=== PATIENT | female | born 1995 | race Caucasian/White ===

== ENCOUNTER → 2017-07-23 10:16 | Outpatient (CLI) | payer OTHER, SELFPAY ==
[2017-07-23 12:02] LABS: Absolute Lymphocyte Count 1.75 X10^3/ul (0.83-4.51); Absolute Neutrophil Count 5.6 X10^3/uL (2.0-7.7); Basophil# 0.02 X10^3/uL; Basophil% 0.3 % (0-1); Eosinophil# 0.12 X10^3/uL; Eosinophils% 1.5 % (0-5); Hematocrit 37.8 % (37-47); Hemoglobin 13.1 g/dl (12.0-15.0); Lymphocyte # 1.75 X10^3/ul (4.0); Lymphocyte % 22.2 % (19-41); Mean Corp Hgb Conc 34.7 g/gl (32-36); Mean Corpuscular Hgb 30.3 pg (27.0-32.0); Mean Corpuscular Volume 87.3 fL (81-99); Mean Platelet Vol. 10.7 fl (6.2-12.0); Monocyte# 0.39 X10^3/uL; Monocyte% 4.9 % (0-10); Neutrophil % 70.8 % (47-70); POSITIVE COUNT NO; POSITIVE DIFFERENTIAL NO; POSITIVE MORPHOLOGY NO; Platelet Count 255 K/mm3 (150-450); RBC Distribution Width CV 12.4 % (11.6-14.6); RBC Distribution Width SD 39.1 fl (35.1-43.9); Red Blood Count 4.33 M/mm3 (4.2-5.4); White Blood Count 7.9 K/mm3 (4.4-11.0)
[2017-07-23 12:07] LABS: Color, Urine Yellow (Yellow); Glucose, Dipstick Normal (Normal); Ketone-Dipstick Negative (Negative); Leukocyte Esterase-Dipstick Negative /ul (Negative); Nitrite-Dipstick Negative (Negative); Occult Blood-Urine Negative /ul (Negative); Protein-Dipstick Negative (Negative); Urine Bilirubin Dipstick Negative (Negative); Urine Clarity Clear (Clear); Urine Urobilinogen Normal (Normal)
[2017-07-23 12:21] LABS: Amphetamine Urine VISTA NEGATIVE (<1000 ng/mL); Barbiturate Urine VISTA NEGATIVE (< 200 ng/mL); Benzodiazepine Urine VISTA NEGATIVE (< 200 ng/mL); Cocaine Urine VISTA NEGATIVE (< 300 ng/mL); Ecstacy Urine VISTA NEGATIVE (< 500 ng/mL); Methadone Urine VISTA NEGATIVE (< 300 ng/mL); PCP Urine VISTA NEGATIVE (< 25 ng/mL); THC Urine VISTA NEGATIVE (< 50 ng/mL); Vista UDS pH Range 6
[2017-07-23 12:22] LABS: Thyroid Stim Hormone (TSH) 1.33 uIU/mL (0.358-3.74)
[2017-07-23 13:05] LABS: HIV - WCH Non-Reactive (Nonreactive); Rubella IgG 284.9 IU/mL
[2017-07-24 10:48] LABS: HEPATITIS B SURFACE AG Negative (Negative); Hep C Antibodies <0.1 s/co ratio (0.0-0.9)
[2017-07-30 11:44] LABS: Prenatal RPR NONREACTIVE (NONREACTIVE)
== END ==
PROVIDERS: Visit Provider Obstetrics & Gynecology
DX: Z34.81 Encounter for supervision of other normal pregnancy, first trimester (principal)
CPT/HCPCS: 36415; 80307; 81002; 84443; 85025; 86703; 86762; 86803; 87340

== ENCOUNTER → 2017-11-18 15:05 | Outpatient (CLI) | payer OTHER, SELFPAY ==
--- NOTE | 2017-11-18 15:05 | DT_ITS ---
This patient was seen during an EMR downtime November 15, 2017 - November 22, 2017. This patient may have a combination of paper and electronic documentation or all paper documentation. All documentation is viewable within the e-chart portion of [facility] for each patient visit.
[2017-11-23 03:22] LABS: Hematocrit 33.4 % (37-47); Hemoglobin 11.2 g/dl (12.0-15.0); Mean Corp Hgb Conc 33.5 g/gl (32-36); Mean Corpuscular Hgb 30.2 pg (27.0-32.0); Mean Platelet Vol. 10.3 fl (6.2-12.0); Platelet Count 260 K/mm3 (150-450); RBC Distribution Width CV 12.8 % (11.6-14.6); RBC Distribution Width SD 41.4 fl (35.1-43.9); Red Blood Count 3.71 M/mm3 (4.2-5.4); Scan Indicated on CBC? Y/N NO
[2017-11-23 04:36] LABS: Glucose Challenge Gest 1H 50g 114 mg/dL (70-140)
== END ==
PROVIDERS: Visit Provider Obstetrics & Gynecology
DX: Z34.83 Encounter for supervision of other normal pregnancy, third trimester (principal)
CPT/HCPCS: 36415; 82950; 85027

== ENCOUNTER 2017-12-14 15:10 | Outpatient (CLI) | payer OTHER, SELFPAY ==
[2017-12-14 15:27] VITALS: BMI 43.4
--- NOTE | 2017-12-14 23:07 | OB.TRI.NOTE ---
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 Sent from ED to [facility] for evaluation first to r/o labor and then plan return to ED for continued workup of symptoms. Isolated high BP in ED Allergies No Known Allergies Allergy (Verified 12/14/17 15:29) Physical Exam Vitals: BP's 120s/70s Not tachycardic. NO continued c/o SOB, chest pressure or tachycardia here. NST - FHR Rate Baby A Baseline: 130s min to avg variability. Accels to 150s. brief variables to 110-120 Variability:: Moderate Accelerations:: 15 x 15 Decelerations:: Variable - each less than 10 sec duration NST Reactive:: Yes, Appropriate for gestational age FHR Category:: Category I Uterine Activity:: irritability only no regular UCs. Impression/Plan 31 5/7 wk Anxiety / panic episode, resolved NST reassuring for gestational age Home. Declined return to ED for continued evaluation as symptoms resolved F/U in ofc as planned and may consider Vistaril prn for anxiety if needed, or other daily RX
--- NOTE | 2017-12-14 23:14 | OB.TRI.HP_ITS ---
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 Sent from ED to [facility] for evaluation first to r/o labor and then plan return to ED for continued workup of symptoms. Isolated high BP in ED Allergies No Known Allergies Allergy (Verified 12/14/17 15:29) Physical Exam Vitals: BP's 120s/70s Not tachycardic. NO continued c/o SOB, chest pressure or tachycardia here. NST - FHR Rate Baby A Baseline: 130s min to avg variability. Accels to 150s. brief variables to 110- 120 Variability:: Moderate Accelerations:: 15 x 15 Decelerations:: Variable - each less than 10 sec duration NST Reactive:: Yes, Appropriate for gestational age FHR Category:: Category I Uterine Activity:: irritability only no regular UCs. Impression/Plan 31 5/7 wk Anxiety / panic episode, resolved NST reassuring for gestational age Home. Declined return to ED for continued evaluation as symptoms resolved F/U in ofc as planned and may consider Vistaril prn for anxiety if needed, or other daily RX
== END 2017-12-14 16:25 | disposition home or self-care (01) ==
LOC: WPOUT 15:14 → WP 15:15
PROVIDERS: Visit Provider Obstetrics & Gynecology
DX: O99.343 Other mental disorders complicating pregnancy, third trimester (principal); F41.0 Panic disorder [episodic paroxysmal anxiety]; Z3A.31 31 weeks gestation of pregnancy
CPT/HCPCS: 59025; 59050; 99218; G0378

== ENCOUNTER → 2018-01-13 15:29 | Outpatient (CLI) | payer OTHER, SELFPAY ==
[2018-01-13 18:42] LABS: Group B Strep DNA By PCR Negative (Negative); Internal Control PASS; Probe Check PASS; Specimen Processing Control PASS
== END ==
LOC: LABSPEC 15:29
PROVIDERS: Visit Provider Obstetrics & Gynecology
DX: Z36.85 Encounter for antenatal screening for Streptococcus B (principal)
CPT/HCPCS: 87081; 87653

== ENCOUNTER 2018-02-17 07:07 | Inpatient (IN) | payer OTHER, SELFPAY ==
[2018-02-17 08:15] VITALS: BMI 45.6
[2018-02-17 08:40] LABS: Hematocrit 36.5 % (37-47); Hemoglobin 12.1 g/dl (12.0-15.0); Mean Corp Hgb Conc 33.2 g/gl (32-36); Mean Corpuscular Hgb 28.5 pg (27.0-32.0); Mean Corpuscular Volume 85.9 fL (81-99); Mean Platelet Vol. 10.2 fl (6.2-12.0); Platelet Count 252 K/mm3 (150-450); RBC Distribution Width CV 13.2 % (11.6-14.6); RBC Distribution Width SD 41.6 fl (35.1-43.9); Red Blood Count 4.25 M/mm3 (4.2-5.4); White Blood Count 10.8 K/mm3 (4.4-11.0)
[2018-02-17] MEDS: Lactated Ringers 1,000 ML 50 ML IV ×4 (08:40→20:44)
[2018-02-17 08:41] LABS: Scan Indicated on CBC? Y/N NO
[2018-02-17] MEDS: Oxytocin 30 units/NS 500 ml 30 UNITS/500 ML IV.SOLN IV (09:00)
[2018-02-17] MEDS: fentaNYL-bupivacaine (epidural) 100 ML BAG EPIDURAL ×3 (11:48→20:44)
[2018-02-17] MEDS: Ondansetron 4 MG/2 ML Vial IV (18:46)
[2018-02-17] MEDS: Acetaminophen 325 MG Tablet PO (19:48)
[2018-02-18] VITALS (24 sets, daily range): BP systolic 106–142; BP diastolic 58–98; PULSE 80–124; RESP 12–18; TEMP 36.4–37.8; O2SAT 93–100
[2018-02-18] MEDS: fentaNYL-bupivacaine (epidural) 100 ML BAG EPIDURAL (01:27)
[2018-02-18] MEDS: Lactated Ringers 1,000 ML 50 ML IV (02:11)
[2018-02-18] MEDS: Sodium Citrate/Citric Acid 30 ML UDC PO ×2 (03:28→03:30)
[2018-02-18] MEDS: Lactated Ringers 1,000 ML 999 ML IV (03:30)
--- NOTE | 2018-02-18 03:30 | PCM.PN.OB ---
Subjective: The patient has progressed to complete and pushing. After several pushes late decelerations were noted with contractions. Pitocin was discontinued and attempts were again made to push but several prolonged decelerations were noted. Examination shows the baby to be at -2 station with It. Patient has been complete for approximately 4 hours with no prospect of delivery soon. Given this we will proceed with primary section for failure to progress and intolerance of labor. Have discussed the risk benefits and alternatives of this procedure including possibility of bleeding infection and injury to surrounding structures such as bowel bladder and the patient and her desired we proceed. All questions were answered. - Physical Exam Weight: 257 lb 4.471 oz Body Mass Index (BMI) 45.6 Intake and Output for Last 24 Hours 02/16/18 02/17/18 02/18/18 23:59 23:59 23:59 Intake Total 2820 / 2820 Output Total 200 / 200 Balance 2620 / 2620 Laboratory Tests Past 24 Hrs 02/17/18 02/17/18 08:06 08:06 WBC 10.8 RBC 4.25 Hgb 12.1 Hct 36.5 L MCV 85.9 MCH 28.5 MCHC 33.2 RDW 13.2 RDW Differential 41.6 Plt Count 252 MPV 10.2 Blood Type B POSITIVE Antibody Screen NEGATIVE Medical Necessity - Tobacco Use Smoking Status: Never smoker
--- NOTE | 2018-02-18 03:39 | OP.PCM_ITS ---
Operative Report Date of Procedure: 02/18/18 Surgeon: Jose Parsons MD, FACOG Labor Relations Or Personnel Negotiator: JANETH Jones Anesthesia: Boo Buckner CRNA Anesthesia: Epidural with Duramorph Pre-op Diagnosis: Failure to Progress, Increasing Stress, Postdatism Post-Op Diagnosis: Failure to Progress, Increasing Stress, Postdatism, Cephalopelvic Disproportion Procedure: Primary Low Transverse Cervical Caesarean Section Findings: Viable male with Apgars of 8/9 in occiput anterior presentation with clear amniotic fluid and normal three-vessel placenta. Head not well engaged in pelvis and caput noted. Indication: This is a 22-year-old who presented for induction at 41 weeks gestation. care has otherwise been uneventful. She subsequently progressed to complete and pushing but with each push had late decelerations noted. Pitocin was stopped and a repeat trial of pushing was performed with resultant prolonged decelerations. Given no prospect of delivery soon, a high station of the head, and caput noted it was decided to proceed with section. The patient has been counseled regarding the risk and indications of this procedure including the possibility of bleeding infection and injury to surrounding structures such as bowel bladder. All questions were answered. Procedure: Patient was taken to the operating room where after spinal anesthesia was placed, the patient was prepped and draped in usual sterile fashion and a Graf catheter was placed. The abdomen was entered through a Pfannenstiel incision and peritoneum was entered bluntly. After developing a bladder flap on the lower uterine segment a low transverse incision was made on the uterus and head was easily delivered onto the operative field the nose mouth and oropharynx were bulb suctioned. Subsequently a viable male infant was born with Apgars of/9. The was noted to cry move all extremities vigorously on the operative field. The umbilical cord was doubly clamped and ligated and handed to the nursery personnel who were present for the delivery. Arterial and venous blood gases were eventually collected per routine. Placenta was delivered and noted to be 3 vessels and normal. Uterus was exteriorized and remaining placental tissue was removed. The uterus was then closed in 2 layers first with running locked 0 Vicryl suture followed by a second imbricating layer with 0 Vicryl suture. 0 Vicryl suture was then used in a horizontal mattress interrupted fashion to affect final hemostasis of the uterine incision line. Normal fallopian tubes and ovaries were visualized and the uterus was returned to the pelvis. Hemostasis was noted and rectus abdominis muscles were reapproximated in the midline with interrupted Number 0 Vicryl suture in a horizontal mattress fashion. Fascia was closed with running Number 1 PDS Strata fix suture. Subcutaneous tissue was irrigated with copious amouts of saline solution and then closed with running 3-0 Vicryl suture in 2 layers. Skin was closed with 4-0 monocryl suture in a running subcuticular fashion. Steri strips, telfa, and tape were placed across the incision. The patient tolerated the procedure well and was taken to the recovery room in satisfactory condition. Sponge, needle, and instrument counts were all reportedly correct. EBL was 750 cc. Ancef 2 gms IV was given prior to the procedure. Spicemen to Pathology: None Complications: None
--- NOTE | 2018-02-18 03:39 | PCM.DCCSEC ---
Discharge Diet: No Restrictions Discharge Activity: May not drive while taking narcotic pain medications., May Shower, May Take a Tub Bath May resume sexual activity in: 4-6 weeks Lifting Restrictions: 20 pounds Additional Activity Instructions:: Nothing in the vagina for 4-6 weeks. You may return to work/school in 6 weeks. Call your doctor if your incision/area has: Continuous Slow Oozing, Sudden Increased Bleeding, Increased Pain/ Swelling, Increased Redness, Foul Smelling Discharge Call your doctor if you observe: Fever of 101 or Higher, Inability to urinate, Inability to have a bowel movement, Using more than one pad per hour Additional Instructions: If you experience any of the following, contact your healthcare provider. Bleeding that soaks a pad every hour for 2 hours Unrelieved incision or abdominal pain Swelling, redness, discharge or bleeding from your incision or episiotomy site Your incision begins to separate Problems urinating (including inability to urinate or burning while urinating). Visual changes Severe headache Flu-like symptoms Pain or redness in one of both of your breasts Pain, warmth, tenderness or swelling in your legs, especially the calf area Frequent nausea and vomiting Symptoms of depression or anxiety If you experience any of the following, call 911 or go to the nearest Emergency Room. Chest pain Problems breathing Seizure activity Partial or complete paralysis of a body part, slurred speech, weakness or drooping of the face, or a sudden inability to walk or hold your balance Allergies/Adverse Reactions: Allergies No Known Allergies Allergy (Verified 12/14/17 15:29) Medications to take at Discharge Pnv95/Ferrous Fumarate/FA [ Vitamins Tablet] 1 each PO 12/14/17 Docusate Sodium [Colace] 100 mg PO BID PRN PRN #60 cap 02/18/18 Oxycodone [Oxyir] 5 mg PO Q6H PRN PRN 7 Days #20 tab 02/18/18 The following prescriptions were given: Oxycodone [Oxyir] 5 mg PO Q6H PRN PRN 7 Days #20 tab PRN Reason: Severe Pain (-03/23) Docusate Sodium [Colace] 100 mg PO BID PRN PRN #60 cap PRN Reason: Constipation Follow-Up: Call to make an appointment with your doctor for an incision check in 1-2 weeks. You will also need a 6 week post- follow up appointment. Test results from this visit will be discussed in further detail at your follow-up appointment, if applicable. Please Follow Up With: Jose Parsons MD - [phone] When: Call to make an appointment for an incision check in 2 weeks. Primary Care Physician: Jose Mirza MD [Primary Care Provider] -
[2018-02-18] MEDS: Cefazolin 2 GM in 0.9% Normal Saline 100 ML IV (03:54)
[2018-02-18] MEDS: Oxytocin 30 units/NS 500 ml 30 UNITS/500 ML IV.SOLN 167 UNITS IV (03:54)
[2018-02-18] MEDS: Lactated Ringers 1,000 ML 100 ML IV ×2 (05:59→15:08)
[2018-02-18] MEDS: Cefazolin 1 GM/50 ML BAG IV ×2 (10:48→19:46)
[2018-02-18] MEDS: Ketorolac 30 MG/ML Syringe IV ×3 (10:48→21:55)
[2018-02-18] MEDS: Acetaminophen 500 MG Tablet 1000 MG PO (15:07)
[2018-02-19 00:40] VITALS: BP 112/62; PULSE 105; RESP 18; TEMP 36.3; O2SAT 99
[2018-02-19] MEDS: Lactated Ringers 1,000 ML 100 ML IV (01:06)
[2018-02-19 02:45] VITALS: PULSE 105; RESP 18; O2SAT 100
[2018-02-19] MEDS: Ketorolac 30 MG/ML Syringe IV ×2 (04:10→10:07)
[2018-02-19] MEDS: 0.9% Saline Lock 10 ML Syringe IV ×2 (04:11→10:07)
[2018-02-19 04:15] VITALS: BP 111/67; PULSE 110; RESP 18; TEMP 36.9; O2SAT 97
[2018-02-19] MEDS: oxyCODONE 5 MG Tablet PO ×3 (04:29→19:56)
[2018-02-19 05:11] LABS: Hematocrit 26.5 % (37-47); Hemoglobin 8.9 g/dl (12.0-15.0); Mean Corp Hgb Conc 33.6 g/gl (32-36); Mean Corpuscular Hgb 29.2 pg (27.0-32.0); Mean Corpuscular Volume 86.9 fL (81-99); Platelet Count 220 K/mm3 (150-450); RBC Distribution Width CV 13.1 % (11.6-14.6); RBC Distribution Width SD 40.4 fl (35.1-43.9); Red Blood Count 3.05 M/mm3 (4.2-5.4); Scan Indicated on CBC? Y/N NO; White Blood Count 17.4 K/mm3 (4.4-11.0)
[2018-02-19 08:00] VITALS: BP 110/59; PULSE 103; RESP 17; TEMP 36.4; O2SAT 96
--- NOTE | 2018-02-19 08:23 | PCM.PN.OB ---
Subjective: Doing well on POD#1. Pain reasonably controlled with PO medications. Objective: Afeb VSS Hgb 8.9 - Physical Exam General: Alert, Oriented x3, Cooperative, No apparent distress Lungs: Clear to auscultation, Normal air movement Cardiovascular: Regular rate, Regular Rhythm Abdomen: Soft, Non Tender, Non-Distended, - - Incision dressing dry Extremities: No edema, No Calf Tenderness Neurological: Neuro grossly intact Psych/Mental Status: Normal Affect Comment: Lochia appropriate Vital Signs Temp Pulse Resp BP Pulse Ox 98.5 F 110 H 18 111/67 97 //18 04:15 /01/29 04:15 02/19/18 04:15 02/19/18 04:15 02/19/18 04:15 Oxygen Delivery Method Room Air Weight: 257 lb 4.471 oz Body Mass Index (BMI) 45.6 Intake and Output for Last 24 Hours 09/06/18 //18 //18 23:59 23:59 23:59 Intake Total 2820 / 2820 3132 / 3132 1509 / 1509 Output Total 200 / 200 1350 / 1350 1300 / 1300 Balance 2620 / 2620 1782 / 1782 209 / 209 Laboratory Tests Past 24 Hrs //18 04:45 WBC 17.4 H RBC 3.05 L Hgb 8.9 L Hct 26.5 L MCV 86.9 MCH 29.2 MCHC 33.6 RDW 13.1 RDW Differential 40.4 Plt Count 220 MPV 10.0 Medical Necessity - Tobacco Use Smoking Status: Never smoker Assessment/Plan Doing well on POD#1. Continue routine PO care.
[2018-02-19] MEDS: Senna/Docusate Sodium 1 Tablet PO (10:06)
[2018-02-19 14:00] VITALS: BP 115/74; PULSE 128; RESP 15; TEMP 36.6; O2SAT 99
[2018-02-19] MEDS: Ibuprofen 600 MG Tablet PO (15:50)
[2018-02-19 20:06] VITALS: BP 120/73; PULSE 117; RESP 18; TEMP 36.9; O2SAT 100
[2018-02-20] MEDS: Ibuprofen 600 MG Tablet PO ×3 (01:02→16:29)
[2018-02-20] MEDS: oxyCODONE 5 MG Tablet PO ×3 (01:02→11:02)
[2018-02-20 01:05] VITALS: BP 131/82; PULSE 131; RESP 18; TEMP 38.2
[2018-02-20] MEDS: Acetaminophen 500 MG Tablet 1000 MG PO (05:58)
[2018-02-20 08:30] VITALS: BP 114/59; PULSE 90; RESP 16; TEMP 36.4
--- NOTE | 2018-02-20 09:07 | PCM.PN.OB ---
Subjective: No specific complaints. Pain reasonably controlled. Bleeding light. Objective: Afeb VSS - Physical Exam General: Alert, Oriented x3, Cooperative, No apparent distress Lungs: Clear to auscultation, Normal air movement Cardiovascular: Regular rate, Regular Rhythm Abdomen: Soft, Non Tender, Non-Distended, - - Fundus nontender. Incision dressing dry Extremities: No edema Skin: No rashes Neurological: Neuro grossly intact Psych/Mental Status: Normal Affect Comment: lochia light Vital Signs Temp Pulse Resp BP Pulse Ox 97.5 F L 90 16 114/59 L 100 02/20/18 08:30 02/20/18 08:30 02/20/18 08:30 02/20/18 08:30 02/19/18 20:06 Oxygen Delivery Method Room Air Weight: 257 lb 4.471 oz Body Mass Index (BMI) 45.6 Intake and Output for Last 24 Hours 02/18/18 02/19/18 02/20/18 23:59 23:59 23:59 Intake Total 3132 / 3132 1509 / 1509 Output Total 1350 / 1350 1650 / 1650 Balance 1782 / 1782 -141 / -141 Medical Necessity - Tobacco Use Smoking Status: Never smoker Assessment/Plan Doing well on PO day#2. Cleared for discharge home today. Home going instructions and warnings given.
--- NOTE | 2018-02-20 09:09 | PCM.DC.SUM ---
Discharge Date and Diagnosis Date of Admission: 02/18/18 Date of Discharge: 02/20/18 - Primary Discharge Diagnosis S/P LTCS Hospital Course and Treatment Consultations 02/17/18 07:12 Consult: Anesthesia Routine Comment: Reason For Exam: labor Operations: - - LTCS Summary of Care Provided: The patient is a 22 year old F [admitted and underwent LTCS without complication. Bilateral tubal done as well. Post operative course unremarkable. Discharged home on POD#2.] Discharge Diet: No Restrictions Discharge Activity: May not drive while taking narcotic pain medications., May Shower, May Take a Tub Bath May resume sexual activity in: 4-6 weeks Additional Activity Instructions:: Nothing in the vagina for 4-6 weeks. You may return to work/school in 6 weeks. Call your doctor if your incision/area has: Continuous Slow Oozing, Sudden Increased Bleeding, Increased Pain/ Swelling, Increased Redness, Foul Smelling Discharge Call your doctor if you observe: Fever of 101 or Higher, Inability to urinate, Inability to have a bowel movement, Using more than one pad per hour Remove Dressing in (days):: 3 Cleanse incision/area with: Soap & Water Home Medications: Medications to take at Discharge Pnv95/Ferrous Fumarate/FA [ Vitamins Tablet] 1 each PO 12/14/17 Docusate Sodium [Colace] 100 mg PO BID PRN PRN #60 cap 02/18/18 Oxycodone [Oxyir] 5 mg PO Q6H PRN PRN 7 Days #20 tab 02/18/18 Ibuprofen 600 mg PO Q6H PRN PRN #30 tab 02/20/18 Following Prescrptions Were Given to Patient: Ibuprofen 600 mg PO Q6H PRN PRN #30 tab PRN Reason: Pain or cramping Oxycodone [Oxyir] 5 mg PO Q6H PRN PRN 7 Days #20 tab PRN Reason: Severe Pain (6-10/10) Docusate Sodium [Colace] 100 mg PO BID PRN PRN #60 cap PRN Reason: Constipation Primary Care Physician: Jose Mirza MD [Primary Care Provider] - Please Follow Up With: Jose Parsons MD - [phone] When: Call to make an appointment for an incision check in 2 weeks. Disposition: Home Minutes spent on discharge:: 15 Patient Condition:: Good Medical Necessity - Tobacco Use Smoking Status: Never smoker Meaningful Use Info Meaningful Use Diagnoses (Choose all that apply): None applicable
[2018-02-20] MEDS: Senna/Docusate Sodium 1 Tablet PO (10:33)
[2018-02-20 14:00] VITALS: BP 118/65; PULSE 121; RESP 18; TEMP 36.6
[2018-02-20] MEDS: Bisacodyl 10 MG Suppository RECTAL (14:51)
== END 2018-02-20 17:15 | disposition home or self-care (01) | DRG 766 ==
PROVIDERS: Admitting Provider Obstetrics & Gynecology; Family Provider Family Medicine; PCP Family Medicine; Visit Provider Obstetrics & Gynecology
DX: O76 Abnormality in fetal heart rate and rhythm complicating labor and delivery (principal); Z3A.41 41 weeks gestation of pregnancy; Z37.0 Single live birth; O65.4 Obstructed labor due to fetopelvic disproportion, unspecified; O48.0 Post-term pregnancy; Z87.891 Personal history of nicotine dependence
CPT/HCPCS: 59025; 59050; 85027; 86850; 86900; 99218; J7120; A4216; G0378; J2405

== ENCOUNTER 2018-02-21 11:15 | Outpatient (CLI) | payer OTHER, SELFPAY | END 2018-02-21 12:15 | disposition home or self-care (01) | LOC: WPOUT 11:18 → WP 11:19 | PROVIDERS: Family Provider Family Medicine; PCP Family Medicine; Visit Provider Obstetrics & Gynecology | DX: Z39.1 Encounter for care and examination of lactating mother (principal) | CPT/HCPCS: 96152 ==

== ENCOUNTER 2018-03-07 08:00 | Outpatient (RCR) | payer OTHER, SELFPAY ==
[2018-02-25 14:32] VITALS: BP 136/78; PULSE 106; RESP 16; TEMP 36.2; BMI 42.5
--- NOTE | 2018-02-25 18:13 | PCM.WC.HP ---
(1) Morbid obesity Status: Chronic Current Visit: Yes Code(s): E66.01 - Morbid (severe) obesity due to excess calories (2) Abdominal wound dehiscence Status: Acute Current Visit: Yes Qualifiers: Encounter type: initial encounter Qualified Code(s): T81.30XA - Disruption of wound, unspecified, initial encounter Code(s): T81.30XA - Disruption of wound, unspecified, initial encounter (3) Dehiscence of section wound, Status: Acute Current Visit: Yes Code(s): O90.0 - Disruption of delivery wound History of Present Illness Date of Service: 02/25/18 Chief Complaint: incision dehiscence History of Wound: Angeline is a 22 yo female who presents to the wound healing center for treatment of a dehisced incision at the request of her DIRECTOR OF STAFF DEVELOPMENT Dr. 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 She underwent an emergency delivery of her son on 02/18/18. She was discharged home and on 02/23/18 she noticed opening of the incision and large amount of drainage from the incision site. She had been having increased pain and some redness surrounding the incision site even prior to discharge home. She was seen by Dr. Parsons on 02/23/18 and sutures were removed to explore the wound for possible abscess. There was a large amount of drainage expressed. She was started on keflex and clindamycin and referred for treatment to the wound center. She was seen at his office again today but no additional treatment was done as she was scheduled to be seen here. She has been packing the wound with gauze and covering with a maxi pad. She has been having to gutierrez ge the dressings sometimes twice an hour. There is a copious amount of drainage from the wound per the patient. She denies any significant odor and the fluid is yellow that is on the gauze. She has surrounding erythema and tenderness. Denies fever or chills. is going well despite all of this. Past Medical History Past Medical History: Chronic Problems Morbid obesity (Chronic) Surgical History: - - Allergies/Adverse Reactions: Allergies No Known Allergies Allergy (Verified 12/14/17 15:29) Home Medications: Ambulatory Orders Medication Instructions Recorded Pnv95/Ferrous Fumarate/FA 1 each PO 12/14/17 [ Vitamins Tablet] Docusate Sodium [Colace] 100 mg PO BID PRN PRN #60 cap 02/18/18 Oxycodone [Oxyir] 5 mg PO Q6H PRN PRN 7 Days #20 tab 02/18/18 Ibuprofen 600 mg PO Q6H PRN PRN #30 tab 02/20/18 - Family History Maternal No pertinent history Paternal No pertinent history Lives: Spouse/ Significant Other Smoking Status: Never smoker Tobacco Use: Non-smoker Alcohol: None Drugs: None Review of Systems Constitutional: Denies: Chills, Fever, Weight Change Eyes: Denies: Pain, Vision Change HEENT: Denies: Difficulty Hearing, Difficulty Swallowing, Sinus Congestion Cardiovascular: Denies: Chest Pain, Palpitations Respiratory: Denies: Cough, Shortness of Breath Gastrointestinal: Reports: Abdominal Pain Genitourinary: Denies: Dysuria, Hematuria Gynecological: Reports: Vaginal bleeding Skin: Reports: Wounds Psychiatric: Reports: Depression Hematologic/ Lymphatic: Denies: Easy Bruising, Easy Bleeding - Physical Exam Vital Signs Temp Pulse Resp BP 97.1 F L 106 H 16 136/78 H 02/25/18 14:32 02/25/18 14:32 02/25/18 14:32 02/25/18 14:32 General: Alert, Oriented x3, Cooperative, No apparent distress HEENT: Atraumatic, Normocephalic Oral: Moist Mucosa Neck: Supple, No JVD Lungs: Clear to auscultation Cardiovascular: Regular rate, Regular Rhythm Abdomen: Soft, Obese, Tender, - - erythema and fluctuance aurrounding incision site Extremities: No edema Skin: Ulcer/ Wound Wound Measurements and Assessment WC - Nurse 1 - General Ulcer Measurement Start: 02/25/18 14:32 Freq: Status: Active Protocol: Activity Type Activity Date Activity User E-Sign Co-Sign Detail Recorded Client Recorded Date Recorded By Document 02/25/18 14:32 MW [id number] 02/25/18 14:50 MW 02/25/18 14:32 Wound Center Nurse 1 [Ulcer Assessment] #1 lower abd incision dehiscence -Combined with other wound No -Current Size (cm) - Length 0.8 -Current Size (cm) - Width 8.0 -Current Size (cm) - Depth 3.0 -Total Square Cm 6.40 -Date of Last Picture (Recall this 02/25/18 field) -Photo Taken Yes -Epithelialization None Present -Tunneling No -Undermining/Tunneling No -Circular Undermining No -Exudate Amt Large (67-100%) -Exudate Type Serosanguineous -Wound Margin Distinct, Outline Attached -Granulation Amt Medium (34-66%) -Granulation Quality [place] -Slough/Fibrin Yes -Necrosis Amt Small (1-33%) -Necrotic Tissue Type Adherent Slough -Structure Exposed N/A -Texture (Carmela-wound Skin Appearance) Assessed -Moisture (Carmela-wound Skin Appearance Assessed ) -Color (Carmela-wound Skin Appearance) Assessed Rubor -Temperature (Carmela-wound Skin No Abnormality Appearance) (Pt Warm) -Tenderness on Palpation (Carmela-wound No Skin Appearance) -Ulcer Cleansing Rinsed/ Irrigated with Saline -Foul Odor after Cleansing No -Anesthetic Used 4% Lidocaine Solution [Edema Assessment] -Lower Limb Edema Present No WC - Nurse 2 - General Ulcer CM Notes Start: 02/25/18 14:32 Freq: Status: Active Protocol: Activity Type Activity Date Activity User E-Sign Co-Sign Detail Recorded Client Recorded Date Recorded By Document 02/25/18 15:26 [id number] 02/25/18 15:42 02/25/18 15:26 Wound Center Nurse 2 [Procedure/Treatment] #1 lower abd incision dehiscence -Time 15:27 -Correct Patient Yes -Correct Side, Site, Position Yes -Correct Procedure Yes -Procedure Performed Yes -Type of Procedure Debridement -Clinical Debridement Subcutaneous -Post Debridement Size (cm) - Length 2.4 -Post Debridement Size (cm) - Width 8.5 -Post Debridement Size (cm) - Depth 5.8 -Total Square Cm 20.40 -Wound/Ulcer Outcome Not Healed -Ulcer Cleansing Rinsed/ Irrigated with Saline -Foul Odor after Cleansing No -Bioengineered Tissue No -Topical Lidocaine (%) 4 -Bleeding Controlled with Pressure -Treatment Response Procedure Tolerated Well [See Physician Procedure note for Specifics] Pain Scale: 0-10 Numeric [Pain] -Is Patient Pain Free? Yes Psych/Mental Status: Normal Affect, Appropriate, - - tearful Debridement Note Post-Debridement Measurements/Treatment WC - Nurse 2 - General Ulcer CM Notes Start: 02/25/18 14:32 Freq: Status: Active Protocol: Activity Type Activity Date Activity User E-Sign Co-Sign Detail Recorded Client Recorded Date Recorded By Document 02/25/18 15:26 [id number] 02/25/18 15:42 02/25/18 15:26 Wound Center Nurse 2 #1 lower abd incision dehiscence -Time 15:27 -Correct Patient Yes -Correct Side, Site, Position Yes -Correct Procedure Yes -Procedure Performed Yes -Type of Procedure Debridement -Clinical Debridement Subcutaneous -Post Debridement Size (cm) - Length 2.4 -Post Debridement Size (cm) - Width 8.5 -Post Debridement Size (cm) - Depth 5.8 -Total Square Cm 20.40 -Wound/Ulcer Outcome Not Healed -Ulcer Cleansing Rinsed/ Irrigated with Saline -Foul Odor after Cleansing No -Bioengineered Tissue No -Topical Lidocaine (%) 4 -Bleeding Controlled with Pressure -Treatment Response Procedure Tolerated Well Pain Scale: 0-10 Numeric Is Patient Pain Free? Yes Wound debrided: lower abdominal incision dehiscence Laterality: Not Applicable Type of Debridement: Excisional debridement Anesthesia Used: 4% Lidocaine Solution Depth: Down to and including healthy tissue, in the subcutaneous layer Percentage of wound debrided: 100 Instrument Used: 7mm curette Tissue Removed: yellow slough, devitalized tissue Severity: Fat Layer Exposed Amount of bleeding with debridement: Mild Bleeding Controlled with: Compression and gauze Patient tolerated procedure well Assessment/Plan Active Problems Morbid obesity (Chronic) Abdominal wound dehiscence (Acute) Dehiscence of section wound, (Acute) Assessment: incision dehiscence Plan: Maribels wound was evaluated and debrided today. A wound cultures were performed to treat infection more specifically. Will have her continue with antibiotics until culture results are back and then may narrow them down. Due to the copious amount of drainage from her incision site/wound, I recommend that she have a wound vac placed to help heal the wound more quickly. Will seek approval through her insurance for this and will have her use silvercell, gauze and ABD's changed 3-4 times daily and as needed in the meantime to alleviate the drainage from sitting in the incision site/wound. She will need wound vac changed three times weekly once it is placed and would initiate pressure settings at 150 mm Hg. Encouraged increased protein intake to heal wound. Advised to call with any increased erythema, pain or odor. Go to ER if high fever or chills. F/U in 1 week.
[2018-03-03 14:48] VITALS: BP 131/85; PULSE 85; RESP 18; TEMP 35.9; BMI 42.5
[2018-03-07 08:16] VITALS: BP 133/86; PULSE 84; RESP 16; TEMP 35.9; BMI 42.5
--- NOTE | 2018-03-07 13:54 | PCM.WC.PN ---
(1) Abdominal wound dehiscence Status: Acute Current Visit: Yes Qualifiers: Encounter type: initial encounter Qualified Code(s): T81.30XA - Disruption of wound, unspecified, initial encounter Code(s): T81.30XA - Disruption of wound, unspecified, initial encounter (2) Dehiscence of section wound, Status: Acute Current Visit: Yes Code(s): O90.0 - Disruption of delivery wound (3) Morbid obesity Status: Chronic Current Visit: Yes Code(s): E66.01 - Morbid (severe) obesity due to excess calories Type of Wound Date of Service: 03/07/18 Chief Complaint: incision dehiscence History of Wound: Angeline is a 22 yo female who presents to the wound healing center for treatment of a dehisced incision at the request of her INSOLVENCY CONSULTANT Dr. 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 She underwent an emergency delivery of her son on 02/18/18. She was discharged home and on 02/23/18 she noticed opening of the incision and large amount of drainage from the incision site. She had been having increased pain and some redness surrounding the incision site even prior to discharge home. She was seen by Dr. Parsons on 02/23/18 and sutures were removed to explore the wound for possible abscess. There was a large amount of drainage expressed. She was started on keflex and clindamycin and referred for treatment to the wound center. She was seen at his office again today but no additional treatment was done as she was scheduled to be seen here. She has been packing the wound with gauze and covering with a maxi pad. She has been having to gutierrez ge the dressings sometimes twice an hour. There is a copious amount of drainage from the wound per the patient. She denies any significant odor and the fluid is yellow that is on the gauze. She has surrounding erythema and tenderness. Denies fever or chills. is going well despite all of this. Progress of Wound: This is a patient of Dr. Morris' who I am seeing in the wound clinic today due to a change in her wound late last week. She did not want to have to wait to the end of the week to see Dr. Morris. She has developed a second wound that is proximal to her dehisced wound. She has been using her wound VAC at home with no difficulty. - Physical Exam Vital Signs Temp Pulse Resp BP 96.7 F L 84 16 133/86 H 03/07/18 08:16 03/07/18 08:16 03/07/18 08:16 03/07/18 08:16 General: Alert, Oriented x3 HEENT: Atraumatic Lungs: Normal air movement Cardiovascular: Regular rate Extremities: No clubbing, No edema Skin: Ulcer/ Wound - Dehiscence of mid section incision. There is a new wounds superior to the incision that is 2.1 x 0.9 x 2.1. There is tunneling and one section of this wound. Wound Measurements and Assessment WC - Nurse 1 - General Ulcer Measurement Start: 02/25/18 14:32 Freq: Status: Active Protocol: Activity Type Activity Date Activity User E-Sign Co-Sign Detail Recorded Client Recorded Date Recorded By Document 03/07/18 08:16 DL [id number] 03/07/18 08:38 DL 03/07/18 08:16 Wound Center Nurse 1 [Ulcer Assessment] #2 Sup Abd -Current Size (cm) - Length 1.2 -Current Size (cm) - Width 2 -Current Size (cm) - Depth 0.1 -Total Square Cm 2.4 -Photo Taken No -Tunneling Yes -Tunneling Position (O'clock) 12 -Tunneling Distance (cm) 2 -Exudate Amt Large (67-100%) -Exudate Type Serosanguineous -Wound Margin Distinct, Outline Attached -Granulation Amt Small (1-33%) -Granulation Quality [place] -Necrosis Amt Large (67-100%) -Necrotic Tissue Type Adherent Slough -Structure Exposed N/A -Texture (Carmela-wound Skin Appearance) Excoriation Scarring -Moisture (Carmela-wound Skin Appearance No Abnormality ) -Color (Carmela-wound Skin Appearance) Erythema -Temperature (Carmela-wound Skin No Abnormality Appearance) (Pt Warm) -Ulcer Cleansing Wound Cleanser -Foul Odor after Cleansing No -Anesthetic Used 4% Lidocaine Solution #1 lower abd incision dehiscence -Current Size (cm) - Length 0.2 -Current Size (cm) - Width 4.8 -Current Size (cm) - Depth 5.3 -Total Square Cm 0.96 -Photo Taken No -Exudate Amt Large (67-100%) -Exudate Type Serosanguineous -Wound Margin Distinct, Outline Attached -Granulation Amt Large (67-100%) -Granulation Quality Red -Necrosis Amt None Present (0 %) -Necrotic Tissue Type Adherent Slough -Structure Exposed N/A -Texture (Carmela-wound Skin Appearance) Scarring -Moisture (Carmela-wound Skin Appearance No Abnormality ) -Color (Carmela-wound Skin Appearance) No Abnormality Erythema -Temperature (Carmela-wound Skin No Abnormality Appearance) (Pt Warm) -Tenderness on Palpation (Carmela-wound No Skin Appearance) -Ulcer Cleansing Wound Cleanser -Foul Odor after Cleansing No -Anesthetic Used 4% Lidocaine Solution WC - Nurse 2 - General Ulcer CM Notes Start: 02/25/18 14:32 Freq: Status: Active Protocol: Activity Type Activity Date Activity User E-Sign Co-Sign Detail Recorded Client Recorded Date Recorded By Document 03/07/18 09:09 [id number] 03/07/18 09:10 03/07/18 09:09 Wound Center Nurse 2 [Procedure/Treatment] #2 Sup Abd -Time 09:09 -Correct Patient Yes -Correct Side, Site, Position Yes -Correct Procedure Yes -Procedure Performed Yes -Type of Procedure Debridement -Clinical Debridement Subcutaneous -Post Debridement Size (cm) - Length 2.1 -Post Debridement Size (cm) - Width 0.9 -Post Debridement Size (cm) - Depth 1.2 -Total Square Cm 1.89 -Wound/Ulcer Outcome Not Healed -Ulcer Cleansing Rinsed/ Irrigated with Saline -Foul Odor after Cleansing No -Bioengineered Tissue No -Bleeding Controlled with Pressure -Treatment Response Procedure Tolerated Well #1 lower abd incision dehiscence -Time 09:10 -Correct Patient Yes -Correct Side, Site, Position Yes -Correct Procedure Yes -Procedure Performed Yes -Type of Procedure Debridement -Clinical Debridement Subcutaneous -Post Debridement Size (cm) - Length 0.2 -Post Debridement Size (cm) - Width 5 -Post Debridement Size (cm) - Depth 4.7 -Total Square Cm 1.0 -Wound/Ulcer Outcome Not Healed -Ulcer Cleansing Rinsed/ Irrigated with Saline -Foul Odor after Cleansing No -Bioengineered Tissue No -Bleeding Controlled with Pressure -Treatment Response Procedure Tolerated Well [See Physician Procedure note for Specifics] Pain Scale: 0-10 Numeric [Pain] -Is Patient Pain Free? Yes Musculoskeletal: No Tenderness to Palpation of Joints or Extremities Neurological: Neuro grossly intact Psych/Mental Status: Normal Affect, Appropriate, Alert and oriented to time, place, person, mood and affect Debridement Note Post-Debridement Measurements/Treatment WC - Nurse 2 - General Ulcer CM Notes Start: 02/25/18 14:32 Freq: Status: Active Protocol: Activity Type Activity Date Activity User E-Sign Co-Sign Detail Recorded Client Recorded Date Recorded By Document 02/25/18 15:26 [id number] 02/25/18 15:42 Document 03/07/18 09:09 [id number] 03/07/18 09:10 02/25/18 03/07/18 15:26 09:09 Wound Center Nurse 2 #2 Sup Abd -Time 09:09 -Correct Patient Yes -Correct Side, Site, Position Yes -Correct Procedure Yes -Procedure Performed Yes -Type of Procedure Debridement -Clinical Debridement Subcutaneous -Post Debridement Size (cm) - Length 2.1 -Post Debridement Size (cm) - Width 0.9 -Post Debridement Size (cm) - Depth 1.2 -Total Square Cm 1.89 -Wound/Ulcer Outcome Not Healed -Ulcer Cleansing Rinsed/ Irrigated with Saline -Foul Odor after Cleansing No -Bioengineered Tissue No -Bleeding Controlled with Pressure -Treatment Response Procedure Tolerated Well #1 lower abd incision dehiscence -Time 15:27 09:10 -Correct Patient Yes Yes -Correct Side, Site, Position Yes Yes -Correct Procedure Yes Yes -Procedure Performed Yes Yes -Type of Procedure Debridement Debridement -Clinical Debridement Subcutaneous Subcutaneous -Post Debridement Size (cm) - Length 2.4 0.2 -Post Debridement Size (cm) - Width 8.5 5 -Post Debridement Size (cm) - Depth 5.8 4.7 -Total Square Cm 20.40 1.0 -Wound/Ulcer Outcome Not Healed Not Healed -Ulcer Cleansing Rinsed/ Rinsed/ Irrigated with Irrigated with Saline Saline -Foul Odor after Cleansing No No -Bioengineered Tissue No No -Topical Lidocaine (%) 4 -Bleeding Controlled with Pressure Pressure -Treatment Response Procedure Procedure Tolerated Well Tolerated Well Pain Scale: 0-10 Numeric Is Patient Pain Free? Yes Yes Laterality: Not Applicable Type of Debridement: Excisional debridement Anesthesia Used: 4% Lidocaine Solution Depth: Down to and including healthy tissue, in the subcutaneous layer Percentage of wound debrided: 100 Instrument Used: 5mm curette Tissue Removed: In his tissue and slough Severity: Fat Layer Exposed Amount of bleeding with debridement: Mild Bleeding Controlled with: Pressure Patient tolerated procedure well Mid incisional open area debrided to remove the bioderm and slough. Tissue is beefy pink. Good bleeding obtained. Obtained hemostatisis with pressure. - Additional Wound Laterality: Right Type of Debridement: Excisional debridement Anesthesia Used: 5% Lidocaine Gel Depth: Down to and including healthy tissue, in the subcutaneous layer Percentage of wound debrided: 100 Instrument Used: 3mm curette Tissue Removed: Subcutaneous tissue and slough. Severity: Fat Layer Exposed - Right superior open area debrided to remove bioderm and slough. There is an area of tunneling distal portion of the open area. Amount of bleeding with debridement: Mild Bleeding Controlled with: Pressure Patient tolerated procedure: Patient tolerated procedure well Assessment/Plan Active Problems Morbid obesity (Chronic) Abdominal wound dehiscence (Acute) Dehiscence of section wound, (Acute) Assessment: incision dehiscence Plan: Angeline's wound was evaluated and debrided today. Wound culture showed haemophilus parainfluenzae, strep anginosus, and Prevotella melaningenica. She has completed her clindamycin and Keflex which were sensitive to the organisms. She was started last week on Flagyl for the anaerobic bacteria which she was instructed to continue. We will continue the wound VAC and include the new open area. We will switch her to a white foam. She will have home health change her wound VAC twice a week, and coming to the wound center once a week for evaluation of her wound and to have wound VAC change. Encouraged increased protein and vitamin C intake to heal wound. Advised to call with any increased erythema, pain or odor. Go to ER if high fever or chills. She will follow-up with Dr. Morris next week. Code Visit [id number]: [id number] [place] subq tissue 20 sq cm/<
== END 2018-03-13 23:59 ==
LOC: WC 08:00
PROVIDERS: Family Provider Family Medicine; PCP Family Medicine; Visit Provider Family Medicine
DX: O90.0 Disruption of cesarean delivery wound (principal); E66.01 Morbid (severe) obesity due to excess calories; Z68.41 Body mass index [BMI] 40.0-44.9, adult; Z71.3 Dietary counseling and surveillance; T81.30XA Disruption of wound, unspecified, initial encounter
CPT/HCPCS: 11042; 87070; 87075; 87076; 87077; 87186; 87205; 97605; 97606; 99212; 99213; G0463

== ENCOUNTER 2018-04-08 15:00 | Outpatient (RCR) | payer OTHER, SELFPAY ==
[2018-03-14 01:42] VITALS: BP 133/86; PULSE 84; RESP 16; TEMP 35.9
[2018-03-18 13:39] VITALS: BP 157/74; PULSE 93; RESP 16; TEMP 36.6
--- NOTE | 2018-03-18 16:23 | PCM.WC.PN ---
(1) Morbid obesity Status: Chronic Current Visit: Yes Code(s): E66.01 - Morbid (severe) obesity due to excess calories (2) Abdominal wound dehiscence Status: Chronic Current Visit: Yes Qualifiers: Encounter type: subsequent encounter Qualified Code(s): T81.30XD - Disruption of wound, unspecified, subsequent encounter Code(s): T81.30XA - Disruption of wound, unspecified, initial encounter (3) Dehiscence of section wound, Status: Chronic Current Visit: Yes Code(s): O90.0 - Disruption of delivery wound Type of Wound Chief Complaint: incision dehiscence History of Wound: Angeline is a 22 yo female who presents to the wound healing center for treatment of a dehisced incision at the request of her ELECTRIC METER INSTALLER HELPER Dr. 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 She underwent an emergency delivery of her son on 02/18/18. She was discharged home and on 02/23/18 she noticed opening of the incision and large amount of drainage from the incision site. She had been having increased pain and some redness surrounding the incision site even prior to discharge home. She was seen by Dr. Parsons on 02/23/18 and sutures were removed to explore the wound for possible abscess. There was a large amount of drainage expressed. She was started on keflex and clindamycin and referred for treatment to the wound center. She was seen at his office again today but no additional treatment was done as she was scheduled to be seen here. She has been packing the wound with gauze and covering with a maxi pad. She has been having to gutierrez ge the dressings sometimes twice an hour. There is a copious amount of drainage from the wound per the patient. She denies any significant odor and the fluid is yellow that is on the gauze. She has surrounding erythema and tenderness. Denies fever or chills. is going well despite all of this. Progress of Wound: Angeline is doing well with her wound vac but she does c/o an odor over the last few days. She also has some itching of the skin surrounding her wound. She denies any increase in pain. She was seen earlier last week due to developing a second wound that is proximal to her dehisced wound. She has been using her wound VAC at home with no difficulty. - Physical Exam Vital Signs Temp Pulse Resp BP 97.8 F 93 16 157/74 H 03/18/18 13:39 03/18/18 13:39 03/18/18 13:39 03/18/18 13:39 General: Alert, Oriented x3, Cooperative, No apparent distress HEENT: Atraumatic, Normocephalic Oral: Moist Mucosa Abdomen: Obese Skin: Ulcer/ Wound Wound Measurements and Assessment WC - Nurse 1 - General Ulcer Measurement Start: 03/18/18 13:39 Freq: Status: Active Protocol: Activity Type Activity Date Activity User E-Sign Co-Sign Detail Recorded Client Recorded Date Recorded By Document 03/18/18 13:39 MW [id number] 03/18/18 13:49 MW 03/18/18 13:39 Wound Center Nurse 1 [Ulcer Assessment] #2 Sup Abd -Combined with other wound No -Current Size (cm) - Length 0.7 -Current Size (cm) - Width 0.8 -Current Size (cm) - Depth 0.8 -Total Square Cm 0.56 -Photo Taken No -Epithelialization None Present -Tunneling No -Undermining/Tunneling No -Circular Undermining No -Exudate Amt Small (1-33%) -Exudate Type Sanguineous -Wound Margin Distinct, Outline Attached -Granulation Amt Medium (34-66%) -Granulation Quality Red -Slough/Fibrin Yes -Necrosis Amt Small (1-33%) -Necrotic Tissue Type Adherent Slough -Structure Exposed N/A -Texture (Carmela-wound Skin Appearance) Assessed Scarring -Moisture (Carmela-wound Skin Appearance No Abnormality ) Assessed -Color (Carmela-wound Skin Appearance) No Abnormality Assessed -Temperature (Carmela-wound Skin No Abnormality Appearance) (Pt Warm) -Tenderness on Palpation (Carmela-wound Yes Skin Appearance) -Ulcer Cleansing Rinsed/ Irrigated with Saline -Foul Odor after Cleansing No -Anesthetic Used 4% Lidocaine Solution #1 lower abd incision dehiscence -Combined with other wound No -Current Size (cm) - Length 0.3 -Current Size (cm) - Width 3.2 -Current Size (cm) - Depth 1.2 -Total Square Cm 0.96 -Photo Taken No -Epithelialization None Present -Tunneling No -Undermining/Tunneling No -Circular Undermining No -Exudate Amt Small (1-33%) -Exudate Type Sanguineous -Wound Margin Distinct, Outline Attached -Granulation Amt Medium (34-66%) -Granulation Quality Red -Slough/Fibrin Yes -Necrosis Amt Small (1-33%) -Necrotic Tissue Type Adherent Slough -Structure Exposed N/A -Texture (Carmela-wound Skin Appearance) Assessed Scarring -Moisture (Carmela-wound Skin Appearance No Abnormality ) Assessed -Color (Carmela-wound Skin Appearance) No Abnormality Assessed -Temperature (Carmela-wound Skin No Abnormality Appearance) (Pt Warm) -Tenderness on Palpation (Carmela-wound Yes Skin Appearance) -Ulcer Cleansing Rinsed/ Irrigated with Saline -Foul Odor after Cleansing No -Anesthetic Used 4% Lidocaine Solution [Edema Assessment] -Lower Limb Edema Present No WC - Nurse 2 - General Ulcer CM Notes Start: 03/18/18 13:39 Freq: Status: Active Protocol: Activity Type Activity Date Activity User E-Sign Co-Sign Detail Recorded Client Recorded Date Recorded By Document 03/18/18 14:23 [id number] 03/18/18 14:25 03/18/18 14:23 Wound Center Nurse 2 [Procedure/Treatment] #2 Sup Abd -Time 14:24 -Correct Patient Yes -Correct Side, Site, Position Yes -Correct Procedure Yes -Procedure Performed Yes -Type of Procedure Debridement -Clinical Debridement Subcutaneous -Post Debridement Size (cm) - Length 0.7 -Post Debridement Size (cm) - Width 1.2 -Post Debridement Size (cm) - Depth 0.8 -Total Square Cm 0.84 -Wound/Ulcer Outcome Not Healed -Ulcer Cleansing Rinsed/ Irrigated with Saline -Foul Odor after Cleansing No -Bioengineered Tissue No -Topical Lidocaine (%) 4 -Bleeding Controlled with Pressure -Treatment Response Procedure Tolerated Well #1 lower abd incision dehiscence -Time 14:24 -Correct Patient Yes -Correct Side, Site, Position Yes -Correct Procedure Yes -Procedure Performed Yes -Type of Procedure Debridement -Clinical Debridement Subcutaneous -Post Debridement Size (cm) - Length 1.2 -Post Debridement Size (cm) - Width 3.3 -Post Debridement Size (cm) - Depth 0.9 -Total Square Cm 3.96 -Wound/Ulcer Outcome Not Healed -Ulcer Cleansing Rinsed/ Irrigated with Saline -Foul Odor after Cleansing No -Bioengineered Tissue No -Topical Lidocaine (%) 4 -Bleeding Controlled with Pressure -Treatment Response Procedure Tolerated Well [See Physician Procedure note for Specifics] Pain Scale: 0-10 Numeric [Pain] -Is Patient Pain Free? Yes Psych/Mental Status: Normal Affect, Appropriate Debridement Note Post-Debridement Measurements/Treatment WC - Nurse 2 - General Ulcer CM Notes Start: 03/18/18 13:39 Freq: Status: Active Protocol: Activity Type Activity Date Activity User E-Sign Co-Sign Detail Recorded Client Recorded Date Recorded By Document 03/18/18 14:23 [id number] 03/18/18 14:25 03/18/18 14:23 Wound Center Nurse 2 #2 Sup Abd -Time 14:24 -Correct Patient Yes -Correct Side, Site, Position Yes -Correct Procedure Yes -Procedure Performed Yes -Type of Procedure Debridement -Clinical Debridement Subcutaneous -Post Debridement Size (cm) - Length 0.7 -Post Debridement Size (cm) - Width 1.2 -Post Debridement Size (cm) - Depth 0.8 -Total Square Cm 0.84 -Wound/Ulcer Outcome Not Healed -Ulcer Cleansing Rinsed/ Irrigated with Saline -Foul Odor after Cleansing No -Bioengineered Tissue No -Topical Lidocaine (%) 4 -Bleeding Controlled with Pressure -Treatment Response Procedure Tolerated Well #1 lower abd incision dehiscence -Time 14:24 -Correct Patient Yes -Correct Side, Site, Position Yes -Correct Procedure Yes -Procedure Performed Yes -Type of Procedure Debridement -Clinical Debridement Subcutaneous -Post Debridement Size (cm) - Length 1.2 -Post Debridement Size (cm) - Width 3.3 -Post Debridement Size (cm) - Depth 0.9 -Total Square Cm 3.96 -Wound/Ulcer Outcome Not Healed -Ulcer Cleansing Rinsed/ Irrigated with Saline -Foul Odor after Cleansing No -Bioengineered Tissue No -Topical Lidocaine (%) 4 -Bleeding Controlled with Pressure -Treatment Response Procedure Tolerated Well Pain Scale: 0-10 Numeric Is Patient Pain Free? Yes Wound debrided: superior abdominal wound Laterality: Right Type of Debridement: Excisional debridement Anesthesia Used: 4% Lidocaine Solution Depth: Down to and including healthy tissue, in the subcutaneous layer Percentage of wound debrided: 100 Instrument Used: 5mm curette Tissue Removed: yellow slough, devitalized tissue Severity: Fat Layer Exposed Amount of bleeding with debridement: Mild Bleeding Controlled with: Compression and gauze Patient tolerated procedure well Assessment/Plan Active Problems Morbid obesity (Chronic) Abdominal wound dehiscence (Chronic) Dehiscence of section wound, (Chronic) Assessment: incision dehiscence Plan: Angeline's wounds were evaluated and debrided today. We will continue the wound VAC and include the new open area. Wound culture done today due to odor. Diflucan prescribed due to candidal infection of skin surrounding wound. We will continue white foam. She will have home health change her wound VAC twice a week, and come to the wound center once a week for evaluation of her wound and to have wound VAC change. Encouraged increased protein and vitamin C intake to heal wound. Advised to call with any increased erythema, pain or odor. Go to ER if high fever or chills. Follow-up in 1 week.
[2018-03-25 15:26] VITALS: BP 127/75; PULSE 89; RESP 16; TEMP 36.6
--- NOTE | 2018-03-25 17:06 | PCM.WC.PN ---
(1) Morbid obesity Status: Chronic Current Visit: Yes Code(s): E66.01 - Morbid (severe) obesity due to excess calories (2) Abdominal wound dehiscence Status: Chronic Current Visit: Yes Qualifiers: Encounter type: subsequent encounter Qualified Code(s): T81.30XD - Disruption of wound, unspecified, subsequent encounter Code(s): T81.30XA - Disruption of wound, unspecified, initial encounter (3) Dehiscence of section wound, Status: Chronic Current Visit: Yes Code(s): O90.0 - Disruption of delivery wound Type of Wound Chief Complaint: incision dehiscence History of Wound: Angeline is a 22 yo female who presents to the wound healing center for treatment of a dehisced incision at the request of her SOLE ROUGHER Dr. 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 She underwent an emergency delivery of her son on 02/18/18. She was discharged home and on 02/23/18 she noticed opening of the incision and large amount of drainage from the incision site. She had been having increased pain and some redness surrounding the incision site even prior to discharge home. She was seen by Dr. Parsons on 02/23/18 and sutures were removed to explore the wound for possible abscess. There was a large amount of drainage expressed. She was started on keflex and clindamycin and referred for treatment to the wound center. She was seen at his office again today but no additional treatment was done as she was scheduled to be seen here. She has been packing the wound with gauze and covering with a maxi pad. She has been having to gutierrez ge the dressings sometimes twice an hour. There is a copious amount of drainage from the wound per the patient. She denies any significant odor and the fluid is yellow that is on the gauze. She has surrounding erythema and tenderness. Denies fever or chills. is going well despite all of this. Progress of Wound: Angeline is doing well with her wound vac. Wound culture was positive from last week. She is going to start antibiotics today. She denies any increase in pain. She has been using her wound VAC at home with little difficulty, does report frequent leaking of air/loss of seal. - Physical Exam Vital Signs Temp Pulse Resp BP 97.8 F 89 16 127/75 H 03/25/18 15:26 03/25/18 15:26 03/25/18 15:26 03/25/18 15:26 General: Alert, Oriented x3, Cooperative, No apparent distress HEENT: Atraumatic, Normocephalic Oral: Moist Mucosa Abdomen: Obese Skin: Ulcer/ Wound Wound Measurements and Assessment WC - Nurse 1 - General Ulcer Measurement Start: 03/18/18 13:39 Freq: Status: Active Protocol: Activity Type Activity Date Activity User E-Sign Co-Sign Detail Recorded Client Recorded Date Recorded By Document 03/25/18 15:26 [facility] [id number] 03/25/18 15:31 [facility] 03/25/18 15:26 Wound Center Nurse 1 [Ulcer Assessment] #2 Sup Abd -Combined with other wound No -Current Size (cm) - Length 0.1 -Current Size (cm) - Width 0.1 -Current Size (cm) - Depth 0.1 -Total Square Cm 0.01 -Photo Taken No -Epithelialization Large 67-100% #1 lower abd incision dehiscence -Combined with other wound No -Current Size (cm) - Length 0.5 -Current Size (cm) - Width 2.4 -Current Size (cm) - Depth 0.7 -Total Square Cm 1.20 -Photo Taken No -Tunneling No -Undermining/Tunneling No -Circular Undermining No -Exudate Amt Medium (34-66%) -Exudate Type Serosanguineous -Wound Margin Distinct, Outline Attached -Granulation Amt Large (67-100%) -Granulation Quality Red -Slough/Fibrin No -Necrosis Amt None Present (0 %) -Texture (Carmela-wound Skin Appearance) Scarring -Moisture (Carmela-wound Skin Appearance Assessed ) -Color (Carmela-wound Skin Appearance) Assessed -Temperature (Carmela-wound Skin No Abnormality Appearance) (Pt Warm) -Tenderness on Palpation (Carmela-wound No Skin Appearance) -Ulcer Cleansing Rinsed/ Irrigated with Saline -Foul Odor after Cleansing No -Anesthetic Used 4% Lidocaine Solution WC - Nurse 2 - General Ulcer CM Notes Start: 03/18/18 13:39 Freq: Status: Active Protocol: Activity Type Activity Date Activity User E-Sign Co-Sign Detail Recorded Client Recorded Date Recorded By Document 03/25/18 15:50 [id number] 03/25/18 15:57 03/25/18 15:50 Wound Center Nurse 2 [Procedure/Treatment] #2 Sup Abd -Time 15:50 -Correct Patient Yes -Correct Side, Site, Position Yes -Correct Procedure Yes -Procedure Performed Yes -Type of Procedure Debridement -Clinical Debridement Subcutaneous -Post Debridement Size (cm) - Length 0.2 -Post Debridement Size (cm) - Width 0.6 -Post Debridement Size (cm) - Depth 0.1 -Total Square Cm 0.12 -Wound/Ulcer Outcome Not Healed -Ulcer Cleansing Not Cleansed -Foul Odor after Cleansing No -Bioengineered Tissue No -Bleeding Controlled with NA -Treatment Response Procedure Tolerated Well #1 lower abd incision dehiscence -Time 15:51 -Correct Patient Yes -Correct Side, Site, Position Yes -Correct Procedure Yes -Procedure Performed Yes -Type of Procedure Debridement -Clinical Debridement Subcutaneous -Post Debridement Size (cm) - Length 0.8 -Post Debridement Size (cm) - Width 3 -Post Debridement Size (cm) - Depth 0.7 -Total Square Cm 2.4 -Wound/Ulcer Outcome Not Healed -Ulcer Cleansing Not Cleansed -Foul Odor after Cleansing No -Bioengineered Tissue No [See Physician Procedure note for Specifics] Pain Scale: 0-10 Numeric [Pain] -Is Patient Pain Free? Yes Psych/Mental Status: Normal Affect, Appropriate Debridement Note Post-Debridement Measurements/Treatment WC - Nurse 2 - General Ulcer CM Notes Start: 03/18/18 13:39 Freq: Status: Active Protocol: Activity Type Activity Date Activity User E-Sign Co-Sign Detail Recorded Client Recorded Date Recorded By Document 03/18/18 14:23 [id number] 03/18/18 14:25 Document 03/25/18 15:50 [id number] 03/25/18 15:57 03/18/18 03/25/18 14:23 15:50 Wound Center Nurse 2 #2 Sup Abd -Time 14:24 15:50 -Correct Patient Yes Yes -Correct Side, Site, Position Yes Yes -Correct Procedure Yes Yes -Procedure Performed Yes Yes -Type of Procedure Debridement Debridement -Clinical Debridement Subcutaneous Subcutaneous -Post Debridement Size (cm) - Length 0.7 0.2 -Post Debridement Size (cm) - Width 1.2 0.6 -Post Debridement Size (cm) - Depth 0.8 0.1 -Total Square Cm 0.84 0.12 -Wound/Ulcer Outcome Not Healed Not Healed -Ulcer Cleansing Rinsed/ Not Cleansed Irrigated with Saline -Foul Odor after Cleansing No No -Bioengineered Tissue No No -Topical Lidocaine (%) 4 -Bleeding Controlled with Pressure NA -Treatment Response Procedure Procedure Tolerated Well Tolerated Well #1 lower abd incision dehiscence -Time 14:24 15:51 -Correct Patient Yes Yes -Correct Side, Site, Position Yes Yes -Correct Procedure Yes Yes -Procedure Performed Yes Yes -Type of Procedure Debridement Debridement -Clinical Debridement Subcutaneous Subcutaneous -Post Debridement Size (cm) - Length 1.2 0.8 -Post Debridement Size (cm) - Width 3.3 3 -Post Debridement Size (cm) - Depth 0.9 0.7 -Total Square Cm 3.96 2.4 -Wound/Ulcer Outcome Not Healed Not Healed -Ulcer Cleansing Rinsed/ Not Cleansed Irrigated with Saline -Foul Odor after Cleansing No No -Bioengineered Tissue No No -Topical Lidocaine (%) 4 -Bleeding Controlled with Pressure -Treatment Response Procedure Tolerated Well Pain Scale: 0-10 Numeric Is Patient Pain Free? Yes Yes Wound debrided: superior abdomen Laterality: Right Type of Debridement: Excisional debridement Anesthesia Used: 4% Lidocaine Solution Depth: Down to and including healthy tissue, in the subcutaneous layer Percentage of wound debrided: 100 Instrument Used: 7mm curette Tissue Removed: yellow slough, devitalized tissue Severity: Fat Layer Exposed Amount of bleeding with debridement: Mild Bleeding Controlled with: Compression and gauze Patient tolerated procedure well - Additional Wound Wound debrided: lower abdominal incision dehiscence Laterality: Not Applicable Type of Debridement: Excisional debridement Anesthesia Used: 4% Lidocaine Solution Depth: Down to and including healthy tissue, in the subcutaneous layer Percentage of wound debrided: 100 Instrument Used: 7mm curette Tissue Removed: yellow slough, devitalized tissue Severity: Fat Layer Exposed Amount of bleeding with debridement: Mild Bleeding Controlled with: Compression and gauze Patient tolerated procedure: Patient tolerated procedure well Assessment/Plan Active Problems Morbid obesity (Chronic) Abdominal wound dehiscence (Chronic) Dehiscence of section wound, (Chronic) Assessment: incision dehiscence Plan: Angeline's wounds were evaluated and debrided today. We will continue the wound VAC to the incision and apply promogran to the superior open area. Complete antibiotics for positive wound culture. She will have home health change her wound VAC twice a week, and come to the wound center once a week for evaluation of her wound and to have wound VAC change. Encouraged increased protein and vitamin C intake to heal wound. Advised to call with any increased erythema, pain or odor. Go to ER if high fever or chills. Follow-up in 1 week.
--- NOTE | 2018-03-25 17:10 | PN.PCM_ITS ---
(1) Morbid obesity Status: Chronic Current Visit: Yes Code(s): E66.01 - Morbid (severe) obesity due to excess calories (2) Abdominal wound dehiscence Status: Chronic Current Visit: Yes Qualifiers: Encounter type: subsequent encounter Qualified Code(s): T81.30XD - Disruption of wound, unspecified, subsequent encounter Code(s): T81.30XA - Disruption of wound, unspecified, initial encounter (3) Dehiscence of section wound, Status: Chronic Current Visit: Yes Code(s): O90.0 - Disruption of delivery wound Type of Wound Chief Complaint: incision dehiscence History of Wound: Angeline is a 22 yo female who presents to the wound healing center for treatment of a dehisced incision at the request of her SENIOR [employer] 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 She underwent an emergency delivery of her son on 02/18/18. She was discharged home and on 02/23/18 she noticed opening of the incision and large amount of drainage from the incision site. She had been having increased pain and some redness surrounding the incision site even prior to discharge home. She was seen by Dr. Parsons on 02/23/18 and sutures were removed to explore the wound for possible abscess. There was a large amount of drainage expressed. She was started on keflex and clindamycin and referred for treatment to the wound center. She was seen at his office again today but no additional treatment was done as she was scheduled to be seen here. She has been packing the wound with gauze and covering with a maxi pad. She has been having to gutierrez ge the dressings sometimes twice an hour. There is a copious amount of drainage from the wound per the patient. She denies any significant odor and the fluid is yellow that is on the gauze. She has surrounding erythema and tenderness. Denies fever or chills. is going well despite all of this. Progress of Wound: Angeline is doing well with her wound vac. Wound culture was positive from last week. She is going to start antibiotics today. She denies any increase in pain. She has been using her wound VAC at home with little difficulty, does report frequent leaking of air/loss of seal. - Physical Exam Vital Signs Temp Pulse Resp BP 97.8 F 89 16 127/75 H 03/25/18 15:26 03/25/18 15:26 03/25/18 15:26 03/25/18 15:26 General: Alert, Oriented x3, Cooperative, No apparent distress HEENT: Atraumatic, Normocephalic Oral: Moist Mucosa Abdomen: Obese Skin: Ulcer/ Wound Wound Measurements and Assessment WC - Nurse 1 - General Ulcer Measurement Start: 03/18/18 13:39 Freq: Status: Active Protocol: Activity Type Activity Date Activity User E-Sign Co-Sign Detail Recorded Client Recorded Date Recorded By Document 03/25/18 15:26 [facility] [id number] 03/25/18 15:31 [facility] 03/25/18 15:26 Wound Center Nurse 1 [Ulcer Assessment] #2 Sup Abd -Combined with other wound No -Current Size (cm) - Length 0.1 -Current Size (cm) - Width 0.1 -Current Size (cm) - Depth 0.1 -Total Square Cm 0.01 -Photo Taken No -Epithelialization Large 67-100% #1 lower abd incision dehiscence -Combined with other wound No -Current Size (cm) - Length 0.5 -Current Size (cm) - Width 2.4 -Current Size (cm) - Depth 0.7 -Total Square Cm 1.20 -Photo Taken No -Tunneling No -Undermining/Tunneling No -Circular Undermining No -Exudate Amt Medium (34-66%) -Exudate Type Serosanguineous -Wound Margin Distinct, Outline Attached -Granulation Amt Large (67-100%) -Granulation Quality Red -Slough/Fibrin No -Necrosis Amt None Present (0 %) -Texture (Carmela-wound Skin Appearance) Scarring -Moisture (Carmela-wound Skin Appearance Assessed ) -Color (Carmela-wound Skin Appearance) Assessed -Temperature (Carmela-wound Skin No Abnormality Appearance) (Pt Warm) -Tenderness on Palpation (Carmela-wound No Skin Appearance) -Ulcer Cleansing Rinsed/ Irrigated with Saline -Foul Odor after Cleansing No -Anesthetic Used 4% Lidocaine Solution WC - Nurse 2 - General Ulcer CM Notes Start: 03/18/18 13:39 Freq: Status: Active Protocol: Activity Type Activity Date Activity User E-Sign Co-Sign Detail Recorded Client Recorded Date Recorded By Document 03/25/18 15:50 [id number] 03/25/18 15:57 03/25/18 15:50 Wound Center Nurse 2 [Procedure/Treatment] #2 Sup Abd -Time 15:50 -Correct Patient Yes -Correct Side, Site, Position Yes -Correct Procedure Yes -Procedure Performed Yes -Type of Procedure Debridement -Clinical Debridement Subcutaneous -Post Debridement Size (cm) - Length 0.2 -Post Debridement Size (cm) - Width 0.6 -Post Debridement Size (cm) - Depth 0.1 -Total Square Cm 0.12 -Wound/Ulcer Outcome Not Healed -Ulcer Cleansing Not Cleansed -Foul Odor after Cleansing No -Bioengineered Tissue No -Bleeding Controlled with NA -Treatment Response Procedure Tolerated Well #1 lower abd incision dehiscence -Time 15:51 -Correct Patient Yes -Correct Side, Site, Position Yes -Correct Procedure Yes -Procedure Performed Yes -Type of Procedure Debridement -Clinical Debridement Subcutaneous -Post Debridement Size (cm) - Length 0.8 -Post Debridement Size (cm) - Width 3 -Post Debridement Size (cm) - Depth 0.7 -Total Square Cm 2.4 -Wound/Ulcer Outcome Not Healed -Ulcer Cleansing Not Cleansed -Foul Odor after Cleansing No -Bioengineered Tissue No [See Physician Procedure note for Specifics] Pain Scale: 0-10 Numeric [Pain] -Is Patient Pain Free? Yes Psych/Mental Status: Normal Affect, Appropriate Debridement Note Post-Debridement Measurements/Treatment WC - Nurse 2 - General Ulcer CM Notes Start: 03/18/18 13:39 Freq: Status: Active Protocol: Activity Type Activity Date Activity User E-Sign Co-Sign Detail Recorded Client Recorded Date Recorded By Document 03/18/18 14:23 [id number] 03/18/18 14:25 Document 03/25/18 15:50 [id number] 03/25/18 15:57 03/18/18 03/25/18 14:23 15:50 Wound Center Nurse 2 #2 Sup Abd -Time 14:24 15:50 -Correct Patient Yes Yes -Correct Side, Site, Position Yes Yes -Correct Procedure Yes Yes -Procedure Performed Yes Yes -Type of Procedure Debridement Debridement -Clinical Debridement Subcutaneous Subcutaneous -Post Debridement Size (cm) - Length 0.7 0.2 -Post Debridement Size (cm) - Width 1.2 0.6 -Post Debridement Size (cm) - Depth 0.8 0.1 -Total Square Cm 0.84 0.12 -Wound/Ulcer Outcome Not Healed Not Healed -Ulcer Cleansing Rinsed/ Not Cleansed Irrigated with Saline -Foul Odor after Cleansing No No -Bioengineered Tissue No No -Topical Lidocaine (%) 4 -Bleeding Controlled with Pressure NA -Treatment Response Procedure Procedure Tolerated Well Tolerated Well #1 lower abd incision dehiscence -Time 14:24 15:51 -Correct Patient Yes Yes -Correct Side, Site, Position Yes Yes -Correct Procedure Yes Yes -Procedure Performed Yes Yes -Type of Procedure Debridement Debridement -Clinical Debridement Subcutaneous Subcutaneous -Post Debridement Size (cm) - Length 1.2 0.8 -Post Debridement Size (cm) - Width 3.3 3 -Post Debridement Size (cm) - Depth 0.9 0.7 -Total Square Cm 3.96 2.4 -Wound/Ulcer Outcome Not Healed Not Healed -Ulcer Cleansing Rinsed/ Not Cleansed Irrigated with Saline -Foul Odor after Cleansing No No -Bioengineered Tissue No No -Topical Lidocaine (%) 4 -Bleeding Controlled with Pressure -Treatment Response Procedure Tolerated Well Pain Scale: 0-10 Numeric Is Patient Pain Free? Yes Yes Wound debrided: superior abdomen Laterality: Right Type of Debridement: Excisional debridement Anesthesia Used: 4% Lidocaine Solution Depth: Down to and including healthy tissue, in the subcutaneous layer Percentage of wound debrided: 100 Instrument Used: 7mm curette Tissue Removed: yellow slough, devitalized tissue Severity: Fat Layer Exposed Amount of bleeding with debridement: Mild Bleeding Controlled with: Compression and gauze Patient tolerated procedure well - Additional Wound Wound debrided: lower abdominal incision dehiscence Laterality: Not Applicable Type of Debridement: Excisional debridement Anesthesia Used: 4% Lidocaine Solution Depth: Down to and including healthy tissue, in the subcutaneous layer Percentage of wound debrided: 100 Instrument Used: 7mm curette Tissue Removed: yellow slough, devitalized tissue Severity: Fat Layer Exposed Amount of bleeding with debridement: Mild Bleeding Controlled with: Compression and gauze Patient tolerated procedure: Patient tolerated procedure well Assessment/Plan Active Problems Morbid obesity (Chronic) Abdominal wound dehiscence (Chronic) Dehiscence of section wound, (Chronic) Assessment: incision dehiscence Plan: Angeline's wounds were evaluated and debrided today. We will continue the wound VAC to the incision and apply promogran to the superior open area. Complete antibiotics for positive wound culture. She will have home health change her wound VAC twice a week, and come to the wound center once a week for evaluation of her wound and to have wound VAC change. Encouraged increased protein and vitamin C intake to heal wound. Advised to call with any increased erythema, pain or odor. Go to ER if high fever or chills. Follow-up in 1 week.
[2018-04-01 15:34] VITALS: BP 125/72; PULSE 86; RESP 20; TEMP 36.8
--- NOTE | 2018-04-01 17:40 | PN.PCM_ITS ---
(1) Morbid obesity Status: Chronic Current Visit: Yes Code(s): E66.01 - Morbid (severe) obesity due to excess calories (2) Abdominal wound dehiscence Status: Chronic Current Visit: Yes Qualifiers: Encounter type: subsequent encounter Qualified Code(s): T81.30XD - Disruption of wound, unspecified, subsequent encounter Code(s): T81.30XA - Disruption of wound, unspecified, initial encounter (3) Dehiscence of section wound, Status: Chronic Current Visit: Yes Code(s): O90.0 - Disruption of delivery wound Type of Wound Date of Service: 04/01/18 Chief Complaint: incision dehiscence History of Wound: Angeline is a 22 yo female who presents to the wound healing center for treatment of a dehisced incision at the request 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 She underwent an emergency delivery of her son on 02/18/18. She was discharged home and on 02/23/18 she noticed opening of the incision and large amount of drainage from the incision site. She had been having increased pain and some redness surrounding the incision site even prior to discharge home. She was seen by Dr. Parsons on 02/23/18 and sutures were removed to explore the wound for possible abscess. There was a large amount of drainage expressed. She was started on keflex and clindamycin and referred for treatment to the wound center. She was seen at his office again today but no additional treatment was done as she was scheduled to be seen here. She has been packing the wound with gauze and covering with a maxi pad. She has been having to gutierrez ge the dressings sometimes twice an hour. There is a copious amount of drainage from the wound per the patient. She denies any significant odor and the fluid is yellow that is on the gauze. She has surrounding erythema and tenderness. Denies fever or chills. is going well despite all of this. Progress of Wound: Angeline is doing well with her wound vac. She is nearly finished with antibiotics. The wound is much smaller. She denies any increase in pain. She has been using her wound VAC at home with little difficulty. - Physical Exam Vital Signs Temp Pulse Resp BP 98.2 F 86 20 H 125/72 H 04/01/18 15:34 04/01/18 15:34 04/01/18 15:34 04/01/18 15:34 General: Alert, Oriented x3, Cooperative, No apparent distress HEENT: Atraumatic, Normocephalic Oral: Moist Mucosa Abdomen: Obese Skin: Ulcer/ Wound Wound Measurements and Assessment WC - Nurse 1 - General Ulcer Measurement Start: 03/18/18 13:39 Freq: Status: Active Protocol: Activity Type Activity Date Activity User E-Sign Co-Sign Detail Recorded Client Recorded Date Recorded By Document 04/01/18 15:34 DL [id number] 04/01/18 15:45 DL 04/01/18 15:34 Wound Center Nurse 1 [Ulcer Assessment] #2 Sup Abd -Current Size (cm) - Length 0.1 -Current Size (cm) - Width 0.1 -Current Size (cm) - Depth 0.1 -Total Square Cm 0.01 -Photo Taken No -Exudate Amt None Present (0 %) -Wound Margin Flat & Intact -Granulation Amt Large (67-100%) -Granulation Quality [place] -Structure Exposed N/A -Texture (Carmela-wound Skin Appearance) Scarring -Moisture (Carmela-wound Skin Appearance No Abnormality ) -Color (Carmela-wound Skin Appearance) No Abnormality -Temperature (Carmela-wound Skin No Abnormality Appearance) (Pt Warm) -Tenderness on Palpation (Carmela-wound No Skin Appearance) -Ulcer Cleansing Wound Cleanser -Foul Odor after Cleansing No -Anesthetic Used 4% Lidocaine Solution #1 lower abd incision dehiscence -Current Size (cm) - Length 0.6 -Current Size (cm) - Width 1.6 -Current Size (cm) - Depth 0.1 -Total Square Cm 0.96 -Photo Taken Yes -Exudate Amt Small (1-33%) -Exudate Type Serosanguineous -Wound Margin Distinct, Outline Attached -Granulation Amt Large (67-100%) -Granulation Quality Red -Necrosis Amt None Present (0 %) -Structure Exposed N/A -Texture (Carmela-wound Skin Appearance) Scarring -Moisture (Carmela-wound Skin Appearance No Abnormality ) -Color (Carmela-wound Skin Appearance) No Abnormality -Temperature (Carmela-wound Skin No Abnormality Appearance) (Pt Warm) -Tenderness on Palpation (Carmela-wound No Skin Appearance) -Ulcer Cleansing Wound Cleanser -Foul Odor after Cleansing No -Anesthetic Used 4% Lidocaine Solution - Nurse 2 - General Ulcer CM Notes Start: 03/18/18 13:39 Freq: Status: Active Protocol: Activity Type Activity Date Activity User E-Sign Co-Sign Detail Recorded Client Recorded Date Recorded By Document 04/01/18 15:52 [id number] 04/01/18 15:55 04/01/18 15:52 Wound Center Nurse 2 [Procedure/Treatment] #2 Sup Abd -Time 15:54 -Wound/Ulcer Outcome Healed- Epithelialized #1 lower abd incision dehiscence -Time 15:54 -Correct Patient Yes -Correct Side, Site, Position Yes -Correct Procedure Yes -Procedure Performed Yes -Type of Procedure Debridement -Clinical Debridement Subcutaneous -Post Debridement Size (cm) - Length 0.5 -Post Debridement Size (cm) - Width 2.2 -Post Debridement Size (cm) - Depth 0.2 -Total Square Cm 1.10 -Wound/Ulcer Outcome Not Healed -Ulcer Cleansing Not Cleansed -Foul Odor after Cleansing No -Bioengineered Tissue No -Bleeding Controlled with NA -Treatment Response Procedure Tolerated Well [See Physician Procedure note for Specifics] Pain Scale: 0-10 Numeric [Pain] -Is Patient Pain Free? Yes Psych/Mental Status: Normal Affect, Appropriate Debridement Note Post-Debridement Measurements/Treatment - Nurse 2 - General Ulcer CM Notes Start: 03/18/18 13:39 Freq: Status: Active Protocol: Activity Type Activity Date Activity User E-Sign Co-Sign Detail Recorded Client Recorded Date Recorded By Document 03/18/18 14:23 [id number] 03/18/18 14:25 Document 03/25/18 15:50 [id number] 03/25/18 15:57 Document 04/01/18 15:52 [id number] 04/01/18 15:55 03/18/18 03/25/18 04/01/18 14:23 15:50 15:52 Wound Center Nurse 2 #2 Sup Abd -Time 14:24 15:50 15:54 -Correct Patient Yes Yes -Correct Side, Site, Position Yes Yes -Correct Procedure Yes Yes -Procedure Performed Yes Yes -Type of Procedure Debridement Debridement -Clinical Debridement Subcutaneous Subcutaneous -Post Debridement Size (cm) - Length 0.7 0.2 -Post Debridement Size (cm) - Width 1.2 0.6 -Post Debridement Size (cm) - Depth 0.8 0.1 -Total Square Cm 0.84 0.12 -Wound/Ulcer Outcome Not Healed Not Healed Healed- Epithelialized -Ulcer Cleansing Rinsed/ Not Cleansed Irrigated with Saline -Foul Odor after Cleansing No No -Bioengineered Tissue No No -Topical Lidocaine (%) 4 -Bleeding Controlled with Pressure NA -Treatment Response Procedure Procedure Tolerated Well Tolerated Well #1 lower abd incision dehiscence -Time 14:24 15:51 15:54 -Correct Patient Yes Yes Yes -Correct Side, Site, Position Yes Yes Yes -Correct Procedure Yes Yes Yes -Procedure Performed Yes Yes Yes -Type of Procedure Debridement Debridement Debridement -Clinical Debridement Subcutaneous Subcutaneous Subcutaneous -Post Debridement Size (cm) - Length 1.2 0.8 0.5 -Post Debridement Size (cm) - Width 3.3 3 2.2 -Post Debridement Size (cm) - Depth 0.9 0.7 0.2 -Total Square Cm 3.96 2.4 1.10 -Wound/Ulcer Outcome Not Healed Not Healed Not Healed -Ulcer Cleansing Rinsed/ Not Cleansed Not Cleansed Irrigated with Saline -Foul Odor after Cleansing No No No -Bioengineered Tissue No No No -Topical Lidocaine (%) 4 -Bleeding Controlled with Pressure NA -Treatment Response Procedure Procedure Tolerated Well Tolerated Well Pain Scale: 0-10 Numeric Is Patient Pain Free? Yes Yes Yes Wound debrided: superior abdomen Laterality: Right No debridement was completed today - due to the wound being healed. - Additional Wound Wound debrided: lower abdomen incision dehiscence Laterality: Not Applicable Type of Debridement: Excisional debridement Anesthesia Used: 4% Lidocaine Solution Depth: Down to and including healthy tissue, in the subcutaneous layer Percentage of wound debrided: 100 Instrument Used: 7mm curette Tissue Removed: yellow slough, devitalized tissue Severity: Fat Layer Exposed Amount of bleeding with debridement: Mild Bleeding Controlled with: Compression and gauze Patient tolerated procedure: Patient tolerated procedure well Assessment/Plan Active Problems Morbid obesity (Chronic) Abdominal wound dehiscence (Chronic) Dehiscence of section wound, (Chronic) Assessment: incision dehiscence Plan: Fermin wounds were evaluated and debrided today. We will discontinue the wound VAC as there is much improvement and decrease in drainage and the wound is now nearly flush with the skin. Will have her use Aquacel extra to the wound with changes daily and twice/day if needed. Complete antibiotics for positive wound culture. Encouraged increased protein and vitamin C intake to heal wound. Advised to call with any increased erythema, pain or odor. Follow-up in 1 week.
[2018-04-08 15:36] VITALS: BP 105/72; PULSE 79; RESP 18; TEMP 36.4
--- NOTE | 2018-04-08 18:35 | PCM.WC.PN ---
(1) Morbid obesity Status: Chronic Current Visit: Yes Code(s): E66.01 - Morbid (severe) obesity due to excess calories (2) Abdominal wound dehiscence Status: Chronic Current Visit: Yes Qualifiers: Encounter type: subsequent encounter Qualified Code(s): T81.30XD - Disruption of wound, unspecified, subsequent encounter Code(s): T81.30XA - Disruption of wound, unspecified, initial encounter (3) Dehiscence of section wound, Status: Chronic Current Visit: Yes Code(s): O90.0 - Disruption of delivery wound Type of Wound Date of Service: 04/08/18 Chief Complaint: incision dehiscence History of Wound: Angeline is a 22 yo female who presents to the wound healing center for treatment of a dehisced incision at the request of her [employer] Dr. 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 She underwent an emergency delivery of her son on 02/18/18. She was discharged home and on 02/23/18 she noticed opening of the incision and large amount of drainage from the incision site. She had been having increased pain and some redness surrounding the incision site even prior to discharge home. She was seen by Dr. Parsons on 02/23/18 and sutures were removed to explore the wound for possible abscess. There was a large amount of drainage expressed. She was started on keflex and clindamycin and referred for treatment to the wound center. She was seen at his office again today but no additional treatment was done as she was scheduled to be seen here. She has been packing the wound with gauze and covering with a maxi pad. She has been having to gutierrez ge the dressings sometimes twice an hour. There is a copious amount of drainage from the wound per the patient. She denies any significant odor and the fluid is yellow that is on the gauze. She has surrounding erythema and tenderness. Denies fever or chills. is going well despite all of this. Progress of Wound: Angeline is doing well with Aquacel dressing. The wound is much smaller. She denies any increase in pain, drainage is minimal and there is no erythema. - Physical Exam Vital Signs Temp Pulse Resp BP 97.5 F L 79 18 105/72 04/08/18 15:36 04/08/18 15:36 04/08/18 15:36 04/08/18 15:36 General: Alert, Oriented x3, Cooperative, No apparent distress HEENT: Atraumatic, Normocephalic Oral: Moist Mucosa Abdomen: Obese Skin: Ulcer/ Wound Wound Measurements and Assessment - Nurse 1 - General Ulcer Measurement Start: 03/18/18 13:39 Freq: Status: Active Protocol: Activity Type Activity Date Activity User E-Sign Co-Sign Detail Recorded Client Recorded Date Recorded By Document 04/08/18 15:36 MT [id number] 04/08/18 15:43 MT 04/08/18 15:36 Wound Center Nurse 1 [Ulcer Assessment] #1 lower abd incision dehiscence -Combined with other wound No -Current Size (cm) - Length 0.2 -Current Size (cm) - Width 0.7 -Current Size (cm) - Depth 0.2 -Total Square Cm 0.14 -Photo Taken No -Epithelialization Medium 34-66% -Tunneling No -Undermining/Tunneling No -Circular Undermining No -Exudate Amt None Present (0 %) -Wound Margin Thickened -Granulation Amt Large (67-100%) -Granulation Quality Pale [place] Red -Slough/Fibrin No -Texture (Carmela-wound Skin Appearance) Assessed -Moisture (Carmela-wound Skin Appearance Assessed ) Maceration -Color (Carmela-wound Skin Appearance) Assessed -Temperature (Carmela-wound Skin No Abnormality Appearance) (Pt Warm) -Tenderness on Palpation (Carmela-wound No Skin Appearance) -Ulcer Cleansing Rinsed/ Irrigated with Saline -Foul Odor after Cleansing No -Anesthetic Used 4% Lidocaine Solution 5% Lidocaine Gel - Nurse 2 - General Ulcer CM Notes Start: 03/18/18 13:39 Freq: Status: Active Protocol: Activity Type Activity Date Activity User E-Sign Co-Sign Detail Recorded Client Recorded Date Recorded By Document 04/08/18 16:19 MW [id number] 04/08/18 16:23 MW 04/08/18 16:19 Wound Center Nurse 2 [Procedure/Treatment] -Time 16:21 -Correct Patient Yes -Correct Side, Site, Position Yes -Correct Procedure Yes -Procedure Performed Yes -Type of Procedure Debridement -Clinical Debridement Subcutaneous -Post Debridement Size (cm) - Length 0.7 -Post Debridement Size (cm) - Width 0.2 -Post Debridement Size (cm) - Depth 0.2 -Total Square Cm 0.14 -Wound/Ulcer Outcome Not Healed -Ulcer Cleansing Rinsed/ Irrigated with Saline -Foul Odor after Cleansing No -Bioengineered Tissue No -Bleeding Controlled with Pressure -Treatment Response Procedure Tolerated Well [See Physician Procedure note for Specifics] Pain Scale: 0-10 Numeric [Pain] -Is Patient Pain Free? Yes Psych/Mental Status: Normal Affect, Appropriate Debridement Note Post-Debridement Measurements/Treatment WC - Nurse 2 - General Ulcer CM Notes Start: 03/18/18 13:39 Freq: Status: Active Protocol: Activity Type Activity Date Activity User E-Sign Co-Sign Detail Recorded Client Recorded Date Recorded By Document 03/18/18 14:23 TM [id number] 03/18/18 14:25 TM Document 03/25/18 15:50 CS [id number] 03/25/18 15:57 CS Document 04/01/18 15:52 CS [id number] 04/01/18 15:55 CS Document 04/08/18 16:19 MW [id number] 04/08/18 16:23 MW 03/18/18 03/25/18 04/01/18 14:23 15:50 15:52 Wound Center Nurse 2 #2 Sup Abd -Time 14:24 15:50 15:54 -Correct Patient Yes Yes -Correct Side, Site, Position Yes Yes -Correct Procedure Yes Yes -Procedure Performed Yes Yes -Type of Procedure Debridement Debridement -Clinical Debridement Subcutaneous Subcutaneous -Post Debridement Size (cm) - Length 0.7 0.2 -Post Debridement Size (cm) - Width 1.2 0.6 -Post Debridement Size (cm) - Depth 0.8 0.1 -Total Square Cm 0.84 0.12 -Wound/Ulcer Outcome Not Healed Not Healed Healed- Epithelialized -Ulcer Cleansing Rinsed/ Not Cleansed Irrigated with Saline -Foul Odor after Cleansing No No -Bioengineered Tissue No No -Topical Lidocaine (%) 4 -Bleeding Controlled with Pressure NA -Treatment Response Procedure Procedure Tolerated Well Tolerated Well #1 lower abd incision dehiscence -Time 14:24 15:51 15:54 -Correct Patient Yes Yes Yes -Correct Side, Site, Position Yes Yes Yes -Correct Procedure Yes Yes Yes -Procedure Performed Yes Yes Yes -Type of Procedure Debridement Debridement Debridement -Clinical Debridement Subcutaneous Subcutaneous Subcutaneous -Post Debridement Size (cm) - Length 1.2 0.8 0.5 -Post Debridement Size (cm) - Width 3.3 3 2.2 -Post Debridement Size (cm) - Depth 0.9 0.7 0.2 -Total Square Cm 3.96 2.4 1.10 -Wound/Ulcer Outcome Not Healed Not Healed Not Healed -Ulcer Cleansing Rinsed/ Not Cleansed Not Cleansed Irrigated with Saline -Foul Odor after Cleansing No No No -Bioengineered Tissue No No No -Topical Lidocaine (%) 4 -Bleeding Controlled with Pressure NA -Treatment Response Procedure Procedure Tolerated Well Tolerated Well Pain Scale: 0-10 Numeric Is Patient Pain Free? Yes Yes Yes 04/08/18 16:19 Wound Center Nurse 2 #2 Sup Abd -Time -Correct Patient -Correct Side, Site, Position -Correct Procedure -Procedure Performed -Type of Procedure -Clinical Debridement -Post Debridement Size (cm) - Length -Post Debridement Size (cm) - Width -Post Debridement Size (cm) - Depth -Total Square Cm -Wound/Ulcer Outcome -Ulcer Cleansing -Foul Odor after Cleansing -Bioengineered Tissue -Topical Lidocaine (%) -Bleeding Controlled with -Treatment Response #1 lower abd incision dehiscence -Time 16:21 -Correct Patient Yes -Correct Side, Site, Position Yes -Correct Procedure Yes -Procedure Performed Yes -Type of Procedure Debridement -Clinical Debridement Subcutaneous -Post Debridement Size (cm) - Length 0.7 -Post Debridement Size (cm) - Width 0.2 -Post Debridement Size (cm) - Depth 0.2 -Total Square Cm 0.14 -Wound/Ulcer Outcome Not Healed -Ulcer Cleansing Rinsed/ Irrigated with Saline -Foul Odor after Cleansing No -Bioengineered Tissue No -Topical Lidocaine (%) -Bleeding Controlled with Pressure -Treatment Response Procedure Tolerated Well Pain Scale: 0-10 Numeric Is Patient Pain Free? Yes Wound debrided: lower abdominal incision dehiscence Laterality: Not Applicable Type of Debridement: Excisional debridement Anesthesia Used: 4% Lidocaine Solution Depth: Down to and including healthy tissue, in the subcutaneous layer Percentage of wound debrided: 100 Instrument Used: 7mm curette Tissue Removed: devitalized tissue, yellow slough Severity: Fat Layer Exposed Amount of bleeding with debridement: Mild Bleeding Controlled with: Compression and gauze Patient tolerated procedure well Assessment/Plan Active Problems Morbid obesity (Chronic) Abdominal wound dehiscence (Chronic) Dehiscence of section wound, (Chronic) Assessment: incision dehiscence Plan: Angeline's wounds were evaluated and debrided today. Much improved and smaller. Will have her continue to use Aquacel extra to the wound with changes daily. Encouraged increased protein and vitamin C intake to heal wound. Advised to call with any increased erythema, pain or odor. Follow-up in 1 week.
--- NOTE | 2018-04-08 18:38 | PN.PCM_ITS ---
(1) Morbid obesity Status: Chronic Current Visit: Yes Code(s): E66.01 - Morbid (severe) obesity due to excess calories (2) Abdominal wound dehiscence Status: Chronic Current Visit: Yes Qualifiers: Encounter type: subsequent encounter Qualified Code(s): T81.30XD - Disruption of wound, unspecified, subsequent encounter Code(s): T81.30XA - Disruption of wound, unspecified, initial encounter (3) Dehiscence of section wound, Status: Chronic Current Visit: Yes Code(s): O90.0 - Disruption of delivery wound Type of Wound Date of Service: 04/08/18 Chief Complaint: incision dehiscence History of Wound: Angeline is a 22 yo female who presents to the wound healing center for treatment of a dehisced incision at the request of her TROUBLE OPERATOR Dr. 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 She underwent an emergency delivery of her son on 02/18/18. She was discharged home and on 02/23/18 she noticed opening of the incision and large amount of drainage from the incision site. She had been having increased pain and some redness surrounding the incision site even prior to discharge home. She was seen by Dr. Parsons on 02/23/18 and sutures were removed to explore the wound for possible abscess. There was a large amount of drainage expressed. She was started on keflex and clindamycin and referred for treatment to the wound center. She was seen at his office again today but no additional treatment was done as she was scheduled to be seen here. She has been packing the wound with gauze and covering with a maxi pad. She has been having to gutierrez ge the dressings sometimes twice an hour. There is a copious amount of drainage from the wound per the patient. She denies any significant odor and the fluid is yellow that is on the gauze. She has surrounding erythema and tenderness. Denies fever or chills. is going well despite all of this. Progress of Wound: Angeline is doing well with Aquacel dressing. The wound is much smaller. She denies any increase in pain, drainage is minimal and there is no erythema. - Physical Exam Vital Signs Temp Pulse Resp BP 97.5 F L 79 18 105/72 04/08/18 15:36 04/08/18 15:36 04/08/18 15:36 04/08/18 15:36 General: Alert, Oriented x3, Cooperative, No apparent distress HEENT: Atraumatic, Normocephalic Oral: Moist Mucosa Abdomen: Obese Skin: Ulcer/ Wound Wound Measurements and Assessment - Nurse 1 - General Ulcer Measurement Start: 03/18/18 13:39 Freq: Status: Active Protocol: Activity Type Activity Date Activity User E-Sign Co-Sign Detail Recorded Client Recorded Date Recorded By Document 04/08/18 15:36 MT [id number] 04/08/18 15:43 MT 04/08/18 15:36 Wound Center Nurse 1 [Ulcer Assessment] #1 lower abd incision dehiscence -Combined with other wound No -Current Size (cm) - Length 0.2 -Current Size (cm) - Width 0.7 -Current Size (cm) - Depth 0.2 -Total Square Cm 0.14 -Photo Taken No -Epithelialization Medium 34-66% -Tunneling No -Undermining/Tunneling No -Circular Undermining No -Exudate Amt None Present (0 %) -Wound Margin Thickened -Granulation Amt Large (67-100%) -Granulation Quality Pale [place] Red -Slough/Fibrin No -Texture (Carmela-wound Skin Appearance) Assessed -Moisture (Carmela-wound Skin Appearance Assessed ) Maceration -Color (Carmela-wound Skin Appearance) Assessed -Temperature (Carmela-wound Skin No Abnormality Appearance) (Pt Warm) -Tenderness on Palpation (Carmela-wound No Skin Appearance) -Ulcer Cleansing Rinsed/ Irrigated with Saline -Foul Odor after Cleansing No -Anesthetic Used 4% Lidocaine Solution 5% Lidocaine Gel - Nurse 2 - General Ulcer CM Notes Start: 03/18/18 13:39 Freq: Status: Active Protocol: Activity Type Activity Date Activity User E-Sign Co-Sign Detail Recorded Client Recorded Date Recorded By Document 04/08/18 16:19 MW [id number] 04/08/18 16:23 MW 04/08/18 16:19 Wound Center Nurse 2 [Procedure/Treatment] -Time 16:21 -Correct Patient Yes -Correct Side, Site, Position Yes -Correct Procedure Yes -Procedure Performed Yes -Type of Procedure Debridement -Clinical Debridement Subcutaneous -Post Debridement Size (cm) - Length 0.7 -Post Debridement Size (cm) - Width 0.2 -Post Debridement Size (cm) - Depth 0.2 -Total Square Cm 0.14 -Wound/Ulcer Outcome Not Healed -Ulcer Cleansing Rinsed/ Irrigated with Saline -Foul Odor after Cleansing No -Bioengineered Tissue No -Bleeding Controlled with Pressure -Treatment Response Procedure Tolerated Well [See Physician Procedure note for Specifics] Pain Scale: 0-10 Numeric [Pain] -Is Patient Pain Free? Yes Psych/Mental Status: Normal Affect, Appropriate Debridement Note Post-Debridement Measurements/Treatment WC - Nurse 2 - General Ulcer CM Notes Start: 03/18/18 13:39 Freq: Status: Active Protocol: Activity Type Activity Date Activity User E-Sign Co-Sign Detail Recorded Client Recorded Date Recorded By Document 03/18/18 14:23 TM [id number] 03/18/18 14:25 TM Document 03/25/18 15:50 CS [id number] 03/25/18 15:57 CS Document 04/01/18 15:52 CS [id number] 04/01/18 15:55 CS Document 04/08/18 16:19 MW [id number] 04/08/18 16:23 MW 03/18/18 03/25/18 04/01/18 14:23 15:50 15:52 Wound Center Nurse 2 #2 Sup Abd -Time 14:24 15:50 15:54 -Correct Patient Yes Yes -Correct Side, Site, Position Yes Yes -Correct Procedure Yes Yes -Procedure Performed Yes Yes -Type of Procedure Debridement Debridement -Clinical Debridement Subcutaneous Subcutaneous -Post Debridement Size (cm) - Length 0.7 0.2 -Post Debridement Size (cm) - Width 1.2 0.6 -Post Debridement Size (cm) - Depth 0.8 0.1 -Total Square Cm 0.84 0.12 -Wound/Ulcer Outcome Not Healed Not Healed Healed- Epithelialized -Ulcer Cleansing Rinsed/ Not Cleansed Irrigated with Saline -Foul Odor after Cleansing No No -Bioengineered Tissue No No -Topical Lidocaine (%) 4 -Bleeding Controlled with Pressure NA -Treatment Response Procedure Procedure Tolerated Well Tolerated Well #1 lower abd incision dehiscence -Time 14:24 15:51 15:54 -Correct Patient Yes Yes Yes -Correct Side, Site, Position Yes Yes Yes -Correct Procedure Yes Yes Yes -Procedure Performed Yes Yes Yes -Type of Procedure Debridement Debridement Debridement -Clinical Debridement Subcutaneous Subcutaneous Subcutaneous -Post Debridement Size (cm) - Length 1.2 0.8 0.5 -Post Debridement Size (cm) - Width 3.3 3 2.2 -Post Debridement Size (cm) - Depth 0.9 0.7 0.2 -Total Square Cm 3.96 2.4 1.10 -Wound/Ulcer Outcome Not Healed Not Healed Not Healed -Ulcer Cleansing Rinsed/ Not Cleansed Not Cleansed Irrigated with Saline -Foul Odor after Cleansing No No No -Bioengineered Tissue No No No -Topical Lidocaine (%) 4 -Bleeding Controlled with Pressure NA -Treatment Response Procedure Procedure Tolerated Well Tolerated Well Pain Scale: 0-10 Numeric Is Patient Pain Free? Yes Yes Yes 04/08/18 16:19 Wound Center Nurse 2 #2 Sup Abd -Time -Correct Patient -Correct Side, Site, Position -Correct Procedure -Procedure Performed -Type of Procedure -Clinical Debridement -Post Debridement Size (cm) - Length -Post Debridement Size (cm) - Width -Post Debridement Size (cm) - Depth -Total Square Cm -Wound/Ulcer Outcome -Ulcer Cleansing -Foul Odor after Cleansing -Bioengineered Tissue -Topical Lidocaine (%) -Bleeding Controlled with -Treatment Response #1 lower abd incision dehiscence -Time 16:21 -Correct Patient Yes -Correct Side, Site, Position Yes -Correct Procedure Yes -Procedure Performed Yes -Type of Procedure Debridement -Clinical Debridement Subcutaneous -Post Debridement Size (cm) - Length 0.7 -Post Debridement Size (cm) - Width 0.2 -Post Debridement Size (cm) - Depth 0.2 -Total Square Cm 0.14 -Wound/Ulcer Outcome Not Healed -Ulcer Cleansing Rinsed/ Irrigated with Saline -Foul Odor after Cleansing No -Bioengineered Tissue No -Topical Lidocaine (%) -Bleeding Controlled with Pressure -Treatment Response Procedure Tolerated Well Pain Scale: 0-10 Numeric Is Patient Pain Free? Yes Wound debrided: lower abdominal incision dehiscence Laterality: Not Applicable Type of Debridement: Excisional debridement Anesthesia Used: 4% Lidocaine Solution Depth: Down to and including healthy tissue, in the subcutaneous layer Percentage of wound debrided: 100 Instrument Used: 7mm curette Tissue Removed: devitalized tissue, yellow slough Severity: Fat Layer Exposed Amount of bleeding with debridement: Mild Bleeding Controlled with: Compression and gauze Patient tolerated procedure well Assessment/Plan Active Problems Morbid obesity (Chronic) Abdominal wound dehiscence (Chronic) Dehiscence of section wound, (Chronic) Assessment: incision dehiscence Plan: Angeline's wounds were evaluated and debrided today. Much improved and smaller. Will have her continue to use Aquacel extra to the wound with changes daily. Encouraged increased protein and vitamin C intake to heal wound. Advised to call with any increased erythema, pain or odor. Follow-up in 1 week.
== END 2018-04-13 23:59 ==
LOC: WC 15:00
PROVIDERS: Family Provider Family Medicine; PCP Family Medicine; Visit Provider Family Medicine
DX: O90.0 Disruption of cesarean delivery wound (principal); E66.01 Morbid (severe) obesity due to excess calories; Z68.41 Body mass index [BMI] 40.0-44.9, adult; Z71.3 Dietary counseling and surveillance; T81.30XA Disruption of wound, unspecified, initial encounter
CPT/HCPCS: 11042; 87070; 87075; 87077; 87186; 87205; 97605

== ENCOUNTER 2018-04-15 15:18 | Outpatient (RCR) | payer OTHER, SELFPAY ==
[2018-04-14 01:38] VITALS: BP 105/72; PULSE 79; RESP 18; TEMP 36.4
[2018-04-15 15:20] VITALS: BP 135/76; PULSE 70; RESP 16; TEMP 36.6
--- NOTE | 2018-04-15 18:02 | PCM.WC.PN ---
(1) Morbid obesity Status: Chronic Current Visit: Yes Code(s): E66.01 - Morbid (severe) obesity due to excess calories (2) Abdominal wound dehiscence Status: Chronic Current Visit: Yes Qualifiers: Encounter type: subsequent encounter Code(s): T81.30XA - Disruption of wound, unspecified, initial encounter (3) Dehiscence of section wound, Status: Chronic Current Visit: Yes Code(s): O90.0 - Disruption of delivery wound Type of Wound Date of Service: 04/15/18 Chief Complaint: incision dehiscence History of Wound: Angeline is a 22 yo female who presents to the wound healing center for treatment of a dehisced incision at the request of her RELATIONS MGR Dr. 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 She underwent an emergency delivery of her son on 02/18/18. She was discharged home and on 02/23/18 she noticed opening of the incision and large amount of drainage from the incision site. She had been having increased pain and some redness surrounding the incision site even prior to discharge home. She was seen by Dr. Parsons on 02/23/18 and sutures were removed to explore the wound for possible abscess. There was a large amount of drainage expressed. She was started on keflex and clindamycin and referred for treatment to the wound center. She was seen at his office again today but no additional treatment was done as she was scheduled to be seen here. She has been packing the wound with gauze and covering with a maxi pad. She has been having to gutierrez ge the dressings sometimes twice an hour. There is a copious amount of drainage from the wound per the patient. She denies any significant odor and the fluid is yellow that is on the gauze. She has surrounding erythema and tenderness. Denies fever or chills. is going well despite all of this. Progress of Wound: Angeline is healed. Denies pain or drainage or erythema. - Physical Exam Vital Signs Temp Pulse Resp BP 98 F 70 16 135/76 H 04/15/18 15:20 04/15/18 15:20 04/15/18 15:20 04/15/18 15:20 General: Alert, Oriented x3, Cooperative, No apparent distress HEENT: Atraumatic, Normocephalic Oral: Moist Mucosa Abdomen: Obese Skin: Ulcer/ Wound Wound Measurements and Assessment WC - Nurse 1 - General Ulcer Measurement Start: 04/15/18 15:20 Freq: Status: Active Protocol: Activity Type Activity Date Activity User E-Sign Co-Sign Detail Recorded Client Recorded Date Recorded By Document 04/15/18 15:20 DL [id number] 04/15/18 15:23 DL 04/15/18 15:20 Wound Center Nurse 1 [Ulcer Assessment] #1 lower abd incision dehiscence -Current Size (cm) - Length 0 -Current Size (cm) - Width 0 -Current Size (cm) - Depth 0 -Total Square Cm 0 -Photo Taken Yes -Granulation Amt Large (67-100%) -Granulation Quality [place] -Necrosis Amt None Present (0 %) -Structure Exposed N/A -Moisture (Carmela-wound Skin Appearance No Abnormality ) -Color (Carmela-wound Skin Appearance) No Abnormality -Temperature (Carmela-wound Skin No Abnormality Appearance) (Pt Warm) -Tenderness on Palpation (Carmela-wound Yes Skin Appearance) -Ulcer Cleansing Wound Cleanser -Foul Odor after Cleansing No WC - Nurse 2 - General Ulcer CM Notes Start: 04/15/18 15:20 Freq: Status: Active Protocol: Activity Type Activity Date Activity User E-Sign Co-Sign Detail Recorded Client Recorded Date Recorded By Document 04/15/18 15:23 DL [id number] 04/15/18 15:24 DL 04/15/18 15:23 Wound Center Nurse 2 [Procedure/Treatment] -Time 03:30 -Correct Patient Yes -Correct Side, Site, Position Yes -Correct Procedure Yes -Procedure Performed Yes -Post Debridement Size (cm) - Length 0 -Post Debridement Size (cm) - Width 0 -Post Debridement Size (cm) - Depth 0 -Total Square Cm 0 -Wound/Ulcer Outcome Healed- Epithelialized -Ulcer Cleansing Rinsed/ Irrigated with Saline -Foul Odor after Cleansing No [See Physician Procedure note for Specifics] Pain Scale: 0-10 Numeric [Pain] -Is Patient Pain Free? Yes Psych/Mental Status: Normal Affect, Appropriate Debridement Note Post-Debridement Measurements/Treatment [place] - Nurse 2 - General Ulcer CM Notes Start: 04/15/18 15:20 Freq: Status: Active Protocol: Activity Type Activity Date Activity User E-Sign Co-Sign Detail Recorded Client Recorded Date Recorded By Document 04/15/18 15:23 DL [id number] 04/15/18 15:24 DL 04/15/18 15:23 Wound Center Nurse 2 #1 lower abd incision dehiscence -Time 03:30 -Correct Patient Yes -Correct Side, Site, Position Yes -Correct Procedure Yes -Procedure Performed Yes -Post Debridement Size (cm) - Length 0 -Post Debridement Size (cm) - Width 0 -Post Debridement Size (cm) - Depth 0 -Total Square Cm 0 -Wound/Ulcer Outcome Healed- Epithelialized -Ulcer Cleansing Rinsed/ Irrigated with Saline -Foul Odor after Cleansing No Pain Scale: 0-10 Numeric Is Patient Pain Free? Yes Wound debrided: lower abdominal incision dehiscence Laterality: Not Applicable No debridement was completed today Assessment/Plan Active Problems Morbid obesity (Chronic) Abdominal wound dehiscence (Chronic) Dehiscence of section wound, (Chronic) Assessment: incision dehiscence - healed Plan: Angeline's wound is healed. Will have her continue to use gauze for the next 1-2 weeks to protect the wound from excess miosture. Advised lotion to moisturize the wound once daily. Encouraged increased protein. Advised to call with any increased erythema, pain or odor. Follow-up as needed but she is discharged from treatment at this time.
--- NOTE | 2018-04-15 18:05 | PN.PCM_ITS ---
(1) Morbid obesity Status: Chronic Current Visit: Yes Code(s): E66.01 - Morbid (severe) obesity due to excess calories (2) Abdominal wound dehiscence Status: Chronic Current Visit: Yes Qualifiers: Encounter type: subsequent encounter Code(s): T81.30XA - Disruption of wound, unspecified, initial encounter (3) Dehiscence of section wound, Status: Chronic Current Visit: Yes Code(s): O90.0 - Disruption of delivery wound Type of Wound Date of Service: 04/15/18 Chief Complaint: incision dehiscence History of Wound: Angeline is a 22 yo female who presents to the wound healing center for treatment of a dehisced incision at the request of her WHEEL SETTER Dr. 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 She underwent an emergency delivery of her son on 02/18/18. She was discharged home and on 02/23/18 she noticed opening of the incision and large amount of drainage from the incision site. She had been having increased pain and some redness surrounding the incision site even prior to discharge home. She was seen by Dr. Parsons on 02/23/18 and sutures were removed to explore the wound for possible abscess. There was a large amount of drainage expressed. She was started on keflex and clindamycin and referred for treatment to the wound center. She was seen at his office again today but no additional treatment was done as she was scheduled to be seen here. She has been packing the wound with gauze and covering with a maxi pad. She has been having to gutierrez ge the dressings sometimes twice an hour. There is a copious amount of drainage from the wound per the patient. She denies any significant odor and the fluid is yellow that is on the gauze. She has surrounding erythema and tenderness. Denies fever or chills. is going well despite all of this. Progress of Wound: Angeline is healed. Denies pain or drainage or erythema. - Physical Exam Vital Signs Temp Pulse Resp BP 98 F 70 16 135/76 H 04/15/18 15:20 04/15/18 15:20 04/15/18 15:20 04/15/18 15:20 General: Alert, Oriented x3, Cooperative, No apparent distress HEENT: Atraumatic, Normocephalic Oral: Moist Mucosa Abdomen: Obese Skin: Ulcer/ Wound Wound Measurements and Assessment WC - Nurse 1 - General Ulcer Measurement Start: 04/15/18 15:20 Freq: Status: Active Protocol: Activity Type Activity Date Activity User E-Sign Co-Sign Detail Recorded Client Recorded Date Recorded By Document 04/15/18 15:20 DL [id number] 04/15/18 15:23 DL 04/15/18 15:20 Wound Center Nurse 1 [Ulcer Assessment] #1 lower abd incision dehiscence -Current Size (cm) - Length 0 -Current Size (cm) - Width 0 -Current Size (cm) - Depth 0 -Total Square Cm 0 -Photo Taken Yes -Granulation Amt Large (67-100%) -Granulation Quality [place] -Necrosis Amt None Present (0 %) -Structure Exposed N/A -Moisture (Carmela-wound Skin Appearance No Abnormality ) -Color (Carmela-wound Skin Appearance) No Abnormality -Temperature (Carmela-wound Skin No Abnormality Appearance) (Pt Warm) -Tenderness on Palpation (Carmela-wound Yes Skin Appearance) -Ulcer Cleansing Wound Cleanser -Foul Odor after Cleansing No WC - Nurse 2 - General Ulcer CM Notes Start: 04/15/18 15:20 Freq: Status: Active Protocol: Activity Type Activity Date Activity User E-Sign Co-Sign Detail Recorded Client Recorded Date Recorded By Document 04/15/18 15:23 DL [id number] 04/15/18 15:24 DL 04/15/18 15:23 Wound Center Nurse 2 [Procedure/Treatment] -Time 03:30 -Correct Patient Yes -Correct Side, Site, Position Yes -Correct Procedure Yes -Procedure Performed Yes -Post Debridement Size (cm) - Length 0 -Post Debridement Size (cm) - Width 0 -Post Debridement Size (cm) - Depth 0 -Total Square Cm 0 -Wound/Ulcer Outcome Healed- Epithelialized -Ulcer Cleansing Rinsed/ Irrigated with Saline -Foul Odor after Cleansing No [See Physician Procedure note for Specifics] Pain Scale: 0-10 Numeric [Pain] -Is Patient Pain Free? Yes Psych/Mental Status: Normal Affect, Appropriate Debridement Note Post-Debridement Measurements/Treatment [place] - Nurse 2 - General Ulcer CM Notes Start: 04/15/18 15:20 Freq: Status: Active Protocol: Activity Type Activity Date Activity User E-Sign Co-Sign Detail Recorded Client Recorded Date Recorded By Document 04/15/18 15:23 DL [id number] 04/15/18 15:24 DL 04/15/18 15:23 Wound Center Nurse 2 #1 lower abd incision dehiscence -Time 03:30 -Correct Patient Yes -Correct Side, Site, Position Yes -Correct Procedure Yes -Procedure Performed Yes -Post Debridement Size (cm) - Length 0 -Post Debridement Size (cm) - Width 0 -Post Debridement Size (cm) - Depth 0 -Total Square Cm 0 -Wound/Ulcer Outcome Healed- Epithelialized -Ulcer Cleansing Rinsed/ Irrigated with Saline -Foul Odor after Cleansing No Pain Scale: 0-10 Numeric Is Patient Pain Free? Yes Wound debrided: lower abdominal incision dehiscence Laterality: Not Applicable No debridement was completed today Assessment/Plan Active Problems Morbid obesity (Chronic) Abdominal wound dehiscence (Chronic) Dehiscence of section wound, (Chronic) Assessment: incision dehiscence - healed Plan: Angeline's wound is healed. Will have her continue to use gauze for the next 1-2 weeks to protect the wound from excess miosture. Advised lotion to moisturize the wound once daily. Encouraged increased protein. Advised to call with any increased erythema, pain or odor. Follow-up as needed but she is discharged from treatment at this time.
== END 2018-05-13 23:59 ==
LOC: WC 15:18
PROVIDERS: Family Provider Family Medicine; PCP Family Medicine; Visit Provider Family Medicine
DX: Z09 Encounter for follow-up examination after completed treatment for conditions other than malignant neoplasm (principal); Z68.41 Body mass index [BMI] 40.0-44.9, adult; Z71.3 Dietary counseling and surveillance; E66.01 Morbid (severe) obesity due to excess calories
CPT/HCPCS: 99212; G0463